=== PATIENT | female | born 1980 | race Caucasian/White ===

== ENCOUNTER 2020-02-21 14:18 | Outpatient (CLI) | payer OTHER, SELFPAY ==
--- NOTE | ~2020-02-21 | MM_ITS ---
EXAMINATION: MM screening [facility] HISTORY: Screening mammogram TECHNIQUE: Craniocaudal and mediolateral oblique 3-D tomosynthesis images were obtained and synthetic 2-D images were generated. CAD analysis was submitted and interpreted. COMPARISON: 11/09/2018 BREAST PARENCHYMAL COMPOSITION: The breasts are heterogeneously dense, which may obscure small masses . FINDINGS: There is no evidence of suspicious mass, calcification, or architectural distortion to sugg est malignancy in either breast. There has been no suspicious interval change. IMPRESSION: 1. No mammographic evidence of malignancy. 2. Recommend routine screening mammography in one year. BI-RADS Category 1: Negative Reviewed, dictated and finalized at location A.
== END 2020-02-21 14:19 | disposition home or self-care (01) ==
LOC: ANHIMG 14:22
DX: Z12.31 Encounter for screening mammogram for malignant neoplasm of breast (principal)
CPT/HCPCS: 77063; 77067

== ENCOUNTER 2021-02-22 14:45 | Outpatient (CLI) | payer OTHER, SELFPAY ==
--- NOTE | ~2021-02-22 | MM_ITS ---
EXAMINATION: MM screening [facility] HISTORY: Screening mammogram TECHNIQUE: Craniocaudal and mediolateral oblique 3-D tomosynthesis images were obtained and synthetic 2-D images were generated. CAD analysis was submitted and interpreted. COMPARISON: 02/21/2020, 11/09/2018 BREAST PARENCHYMAL COMPOSITION: The breasts are heterogeneously dense, which may obscure small masses . FINDINGS: There is no evidence of suspicious mass, calcification, or architectural distortion to sugg est malignancy in either breast. There has been no suspicious interval change. IMPRESSION: 1. No mammographic evidence of malignancy. 2. Recommend routine screening mammography in one year. BI-RADS Category 1: Negative Reviewed, dictated and finalized at location A.
== END 2021-02-22 14:46 | disposition home or self-care (01) ==
LOC: ANHIMG 14:56
DX: Z12.31 Encounter for screening mammogram for malignant neoplasm of breast (principal)
CPT/HCPCS: 77063; 77067

== ENCOUNTER 2022-03-23 14:47 | Outpatient (CLI) | payer OTHER, SELFPAY ==
--- NOTE | ~2022-03-23 | MM_ITS ---
EXAMINATION: MM screening [facility] HISTORY: Screening mammogram TECHNIQUE: Craniocaudal and mediolateral oblique 3-D tomosynthesis images were obtained and synthetic 2-D images were generated. CAD analysis was submitted and interpreted. COMPARISON: 02/22/2021, 02/21/2020, 11/09/2018 BREAST PARENCHYMAL COMPOSITION: The breasts are heterogeneously dense, which may obscure small masses . FINDINGS: There is no suspicious mass, calcification, or architectural distortion to suggest malignan cy in either breast. There has been no suspicious interval change. IMPRESSION: 1. No mammographic evidence of malignancy. 2. Recommend routine screening mammography in one year. BI-RADS Category 1: Negative Reviewed, dictated and finalized at location A.
== END 2022-03-23 14:48 | disposition home or self-care (01) ==
DX: Z12.31 Encounter for screening mammogram for malignant neoplasm of breast (principal)
CPT/HCPCS: 77063; 77067

== ENCOUNTER 2023-02-10 11:31 | Emergency (ER) | payer OTHER, SELFPAY ==
[2023-02-10 11:41] VITALS: BP 117/66; PULSE 68; RESP 18; TEMP 36.4; O2SAT 100
--- NOTE | 2023-02-10 11:47 | ED.FEMALEGU ---
HPI - Female Genitourinary General Chief complaint: Urogenital-Female Stated complaint: Female Urogenital Time Seen by Provider: 02/10/23 11:47 Source: patient, RN notes reviewed and old records reviewed Mode of arrival: ambulatory Limitations: no limitations History of Present Illness HPI Narrative: 43-year-old female who presents to [facility] with complaints of 4 day duration urinary tract symptoms which includes burning, urgency,and frequency with some urethra discomfort. Patient reports that she has no suprapubic pain or any back or flank pain. patient reports that she called clinic at [place] and was unable to be seen till next week so was referred to clinic here. Patient reports that she has increased her water intake and burning has decreased some but other symptoms continue. Patient denies any vaginal discharge or any concern for STD exposure. Patient reports that she has not had any known fever. MD elicited complaint: UTI Onset (ago): day(s) (4) Location of symptoms: urethra Severity scale (1-10): 4 Quality of pain: burning Vaginal discharge: none Related Data Home Medications Medication Instructions Recorded Confirmed progesterone micronized 100 mg 100 mg PO HS 02/10/23 02/10/23 capsule semaglutide 1 mg/dose (2 mg/1.5 1 mg subcut WEEKLY 02/10/23 02/10/23 mL) subcutaneous pen injector (Ozempic) Allergies Allergy/AdvReac Type Severity Reaction Status Date / Time No Known Allergies Allergy Unverified 12/25/18 17:01 Review of Systems Review of Systems: CONSTITUTIONAL: Denies fever, chills, or sweats. CARDIOVASCULAR: Denies chest pain, palpitations, or edema. RESPIRATORY: Denies cough or dyspnea. GASTROINTESTINAL: Denies abdominal pain, nausea, vomiting, or diarrhea. GENITOURINARY: Reports dysuria, frequency, urgency. Denies flank pain or visible hematuria. SKIN: Denies rash or itching. MUSCULOSKELETAL: Denies back pain or myalgia. Denies CVA tenderness NEUROLOGIC: Denies headache All systems reviewed & are unremarkable except as noted in HPI and below PMFSH Past Medical History Medical History (Updated 02/11/23 @ 20:39 by Cecy Harrison NP) Obesity (BMI 30-39.9) on Ozempic for weight loss Surgical History Surgical History (Updated 02/11/23 @ 20:32 by Cecy Harrison NP) Previous section Social History Social History (Updated 02/11/23 @ 20:32 by Cecy Harrison NP) Smoking status: Never smoker Alcohol intake: current Alcohol use details: rare social Substance use type: does not use Living arrangements: with family Gender identity (if verbalized by the patient): Female Comments At time of signature, agree with nursing past medical, surgical, social and family history. There is no relevant family history pertinent to the presenting complaint Exam Narrative: GENERAL: Well-appearing, well-nourished, and in no acute distress. HEAD: Normocephalic, atraumatic. NECK: Supple.no lymphadenopathy CHEST: Clear to auscultation. No respiratory distress.SAO2 100% on room air HEART: Regular rate and rhythm. No murmur heard. Normal peripheral pulses. ABDOMEN: Soft, nontender, nondistended, normal active bowel sounds. No CVA tenderness, frequency urgency and dysuria EXTREMITIES: Normal range of motion. No edema. SKIN: Warm, dry, no rash. NEURO: No focal deficits. Alert and oriented x3. Course Course Emergency Course: Patient is aware of diagnosis, understands and agrees to treatment plan.? Anticipatory guidance given.? Patient agrees to follow-up as directed and is aware of reasons to seek care at the emergency department. Portions of this record may have been created with voice recognition software Level of Care: Express Care Visit Vital Signs Vital signs: Vital Signs Temperature 36.4 C 02/10/23 11:41 Pulse Rate 68 02/10/23 11:41 Respiratory Rate 18 02/10/23 11:41 Blood Pressure 117/66 02/10/23 11:41 Pulse Oximetry
== END 2023-02-10 12:11 | disposition home or self-care (01) ==
PROVIDERS: Emergency Provider Registered Nurse
DX: N39.0 Urinary tract infection, site not specified (principal)
CPT/HCPCS: 81003; 87086; 87088; 99213; G0463

== ENCOUNTER 2023-05-10 13:18 | Outpatient (CLI) | payer OTHER, SELFPAY ==
--- NOTE | ~2023-05-10 | MM_ITS ---
EXAMINATION: MM screening [facility] HISTORY: Screening mammogram TECHNIQUE: Craniocaudal and mediolateral oblique 3-D tomosynthesis images were obtained and synthetic 2-D images were generated. Bilateral rotated lateral CC views. CAD analysis was submitted and inter preted. COMPARISON: 03/23/2022, 02/22/2021, 02/21/2020 bilateral screening mammogram examinations BREAST PARENCHYMAL COMPOSITION: The breasts are heterogeneously dense, which may obscure small masses . FINDINGS: There is no evidence of suspicious mass, calcification, or architectural distortion to sugg est malignancy in either breast. There has been no suspicious interval change. IMPRESSION: 1. No mammographic evidence of malignancy. 2. Recommend routine screening mammography in one year. BI-RADS Category 1: Negative Reviewed, dictated and finalized at location A.
== END 2023-05-10 13:19 | disposition home or self-care (01) ==
DX: Z12.31 Encounter for screening mammogram for malignant neoplasm of breast (principal)
CPT/HCPCS: 77063; 77067

== ENCOUNTER 2025-01-17 16:16 | Emergency (ER) | payer OTHER, SELFPAY ==
--- OUTSIDE RECORDS SUMMARY | 2025-01-17 16:18 | XMS_ITS | Continuity of Care Document ---
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 It does not include entries that were removed or entered in error. Problem Status Onset Date Problem Type Date of Resolution Comments Source History of syncope Active 10/13/19 22 Condition -37 [facility] Mixed hyperlipidemia Active 05/08/20 20 Condition -37 [facility] Postural orthostatic tachycardia syndrome Active 09/15/19 16 Condition -37 [facility] Orthostatic hypotension Active 07/08/20 15 Condition -37 [facility] Anxiety Active Condition [facility] Rhinitis Active Condition 37 [facility] Screening for malignant neoplasm of colon done Active Condition [id number] Pityriasis rosea Active Condition DoD HYPOTENSION Inactive Condition DoD visit for: refer patient without exam or treatment Inactive Condition DoD Outpatient Physician Consultation Active Condition DoD visit for: administrative purpose Inactive Condition DoD anxiety Active Condition DoD dizziness Inactive Condition DoD EUSTACHIAN TUBE Active Condition DoD visit for: issue repeat prescription Inactive Condition DoD SINUSITIS Active Condition DoD ankle joint pain Active Condition DoD VARICOSE VEINS Active Condition DoD VASOVAGAL SYNCOPE Active Condition DoD VISUAL DISTURBANCES Active Condition DoD visit for: follow-up exam Active Condition DoD cough Active Condition DoD NORMAL PRE-EMPLOYMENT SCREENING EXAMINATION Active Condition DoD RHINITIS Active Condition DoD UPPER RESPIRATORY INFECTION Inactive Condition DoD visit for: screening exam lipoid disorders Active Condition DoD CONTUSION WITH INTACT SKIN SURFACE Active Condition DoD BACK STRAIN Active Condition DoD lightheadedness Active Condition DoD Body Mass Index Inactive Condition DoD current diet needs improvement Inactive Condition DoD OVERWEIGHT Active Condition DoD visit for: screening exam arthropod-borne disease Inactive Condition DoD visit for: issue repeat prescription for medication Inactive Condition DoD FATIGUE Active Condition Pt with ma ny symptoms of poss thyroid dysfunction, will r/o thyroid and anemia as cause. 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 Condition OCT performed a nd baseline photos taken and reviewed.Monitor DoD REFRACTIVE ERROR - MYOPIA Active Condition Disp Spec Rx -0.50 DS OU, +1.25 Add for Computer [employer] with instructions 5x1min/weekday DoD ALLERGIC RHINITIS Active Condition DoD CONJUNCTIVITIS ACUTE BACTERIAL Active Condition son with conjunctivitis for several days, yesterday evening patient began with itching red right eye, this am eyelashes gummed together with purulent discharge and eye continues with itching and drainage; no allergies to medications, on BCP and not ; will treat with Vigamox drops 3 times a day for 7 days DoD OBSTETRICAL SURGICAL WOUND COMPLICATIONS Active Condition Incision heali ng well. Pt to f/u in 3 wks. DoD POSTOPERATIVE INFECTION ABDOMINAL INCISION Active Condition discussed with Dr Stauffer; may take several months to completely heal; pt to call in 4wks to walk in with Dr Stauffer or Dr Liu for f/u incision check. Pt aware DoD visit for: screening exam for malignant neoplasm cervix Inactive Condition DoD visit for: exam Inactive Condition DoD Inquiry And Counseling: Contraceptive Practices Inactive Condition Will have admin call and notify pt that rx was placed. DoD visit for: postsurgical exam Inactive Condition DoD Supervision Of Normal First Inactive Condition DoD feared medical condition not demonstrated Inactive Condition DoD insomnia Inactive Condition Desires Ambien. DoD BACKACHE Inactive Condition DoD allergies Inactive Condition DoD NONINFECTIVE LEUKORRHEA Active Condition DoD visit for: screening exam malignant neoplasm breast Inactive Condition DoD Pelvic Exam (Internal) Inactive Condition DoD visit for: screening exam venereal disease Inactive Condition DoD NONSPECIFIC ABNORMAL FINDINGS Active Condition DoD Patient Education - Dietary Inactive Condition Nutrtition Briefing DoD Test Positive Inactive Condition DoD UPPER RESPIRATORY INFECTION ACUTE Active Condition DoD Vaccines Prophylactic Need Against Influenza Inactive Condition DoD Medications Combined list of outpatient medications from Department of Defense and Veterans Affairs facilities.Medications provided include 1) outpatient medications from the last 15 months, and 2) patient-reported medications. Medication Details Route Status Patient Instructions Prescription Expires Prescription Number Last Dispense Date Ordering Provider Order Date Order Qty Source AFLURIA QUAD (3YR UP) (influenza virus vaccine quadrivalen t 2021-22 (36 mos up)/PF), 60MCG/ AFLURIA QUAD 2020- (3YR UP) (influen za virus vaccine quadriva lent 2020- (36 mos up)/PF), 60MCG/ Start Date: 05/24/21 Stop Date: 03/19/24 Status: Disconti nued Repeat number: 1 Discont inued 03/19/20242023 No Facilit y Access cholecalcif era 25 mcg (1000 intl units) oral tablet cholecal ciferol 25 mcg (1000 intl units) oral tablet Start Date: 07/30/20 Stop Date: 04/19/24 Status: Disconti nued Repeat number: 1 Discont inued 04/19/20242023 No Facilit y Access Diflucan 150 mg oral tablet See Instruct ions, Take 1 tablet by mouth now and repeat in 3 days for yeast infectio n, # 2 tab(s), 1 total refill(s ), Acute, 04/19/25 12:00:00 AM CDT, Pharmacy : [id number], Fungal, other Ordered 04/19/20252023 2.0 0055C-[address] [place] [address] Flagyl 500 mg oral tablet 1 tab(s), Oral, every 12 hr, X 7 days, # 14 tab(s), 0 total refill(s ), Acute, 04/29/24 6:08:00 PM CDT, Pharmacy : [facility] , Gynecolo gic, other Oral (given by mouth) Complet ed 04/29/2024 4 2023 14.0 0055C-[address] [place] [address] Arturo FLUZONE QUAD 0340-8373 (influenza virus vaccine quadrival 2894-0857(6 mos and up)/PF), 60MCG/.5ML, FLUZONE QUAD 2019- 1 (influen za virus vaccine quadriva l 2019- 1(6 mos and up)/PF), 60MCG/.5 ML, Start Date: 05/21/20 Stop Date: 03/19/24 Status: Disconti nued Repeat number: 1 Discont inued 03/19/20242023 No Facilit y Access folic acid 1 mg oral tablet folic acid 1 mg oral tablet Start Date: 07/30/20 Stop Date: 04/19/24 Status: Alexys miller Repeat number: 1 Discont inued 04/19/20242023 No Facilit y Access LORazepam 0.5 mg oral tablet 1 tab(s), Oral, As Directed , PRN anxiety, # 10 tab(s), 0 total refill(s ), Maintena wae, Pharmacy : [facility] Oral (given by mouth) Ordered 4 2023 10.0 6130C-A f-C-[facility] LORazepam 0.5 mg oral tablet 10 tab(s), 0 total refill(s ), Soft Stop Discont inued 03/19/20242023 6130C-A f-C-375 [facility] LORazepam 0.5 mg oral tablet 1 tab(s), Oral, As Directed , # 2 tab(s), 0 total refill(s ), Maintena wae, Pharmacy : [facility] Oral (given by mouth) Discont inued 04/22/2024 4 2023 2.0 6130C-A f-C-375 Th [facility] Arturo multivitami n adult, oral tablet Oral, Daily, 0 total refill(s ), Maintena nce Oral (given by mouth) Ordered 2023 0055C-3 [facility] Arturo Paxlovid 300 mg-100 mg Dose Pack See instruct ions, Take 300 mg nirmatre lvir (two 150 mg tablets) and 100 mg ritonavi r (one 100 mg tablet), taking all three tablets together , orally twice daily for 5 days, # 30 tab(s), 0 total refill(s ), Maintena nce, Pharmacy : [facility] Discont inued 04/19/2024 4 2023 30.0 6130C[facility]A [facility]uro progesteron e 100 mg capsule See Instruct ions, Oral, # 90 EA, 0 total refill(s ), Hard Stop Oral (given by mouth) Complet ed 02/20/2024 3 2023 90.0 Ambulat ory Pharmac y progesteron e 100 mg oral capsule 90 cap(s), 0 total refill(s ), Soft Stop Discont inued 04/19/20242023 6130C-A f-C-375 [facility] semaglutide (Ozempic) 2 mg/3 mL (0.25 mg or 0.5 mg dose) inj-pen mg, SubCutan eous, every week, 0 total refill(s ), Maintena nce SubCut aneous (under the skin) Ordered 2023 0055C-3 [facility] semaglutide (Wegovy) 1 mg/0.5 mL (1 mg dose) inj-pen See Instruct ions, Inject 1mg subcutan eously once weekly for four weeks for weight manageme nt, # 2 mL, 0 total refill(s ), Maintena nce, pen needles not needed, integrat ed into device Discont inued 04/19/20242023 2.0 6130C-A f-C-375 [facility] Arturo sulfamethox azole-trime thoprim 800 mg-160 mg oral tablet 14 EA, TAKE 1 TABLET BY MOUTH EVERY 12 HOURS, 0 total refill(s ), Soft Stop Discont inued 03/19/20242023 6130C-A f-C-375 [facility] Art[facility] Allergies, Adverse Reactions, Alerts Combined list of allergies from Department of Defense and Veterans Affairs facilities. It does not include entries that were removed or entered in error. Substance Category Reaction Severity Reaction type Status Date Reported Comments Source No Known Allergies Drug allergy (disorder) active 02/12/2008 [facility] Arturo BAKER ([facility]) Immunizations Combined list of available immunizations from the Department of Defense and Veterans Affairs facilities. Immunization Series Date Given Administered By Site Reaction Lot Number CVX Code Drug [employer]ing Machine Tender Status Comments Source COVID-19, mRNA, LNP-S, PF, 30 mcg/0.3 mL dose 2020 SHIRIN, [employer] (PFR) Not Given COVID-19, mRNA, LNP-S, PF, 30 mcg/0.3 mL dose DoD influenza, injectable, quadrivalent, preservative free 2020 KARLI, () Not Given influenza , injectabl e, quadrival ent, preservat micah free DoD influenza, injectable, quadrivalent- pf 2019 150 complet ed influenza , injectabl e, quadrival ent-pf 05/13/20 Given Ambulat ory Pharmac y influenza, injectable, quadrivalent, preservative free 2019 ALUL, () Not Given influenza , injectabl e, quadrival ent, preservat micah free DoD influenza, injectable, quadrivalent- pf 2018 150 complet ed influenza , injectabl e, quadrival ent-pf 06/13/19 Given Ambulat ory Pharmac y influenza, injectable, quadrivalent, preservative free 2018 ALUL, () Not Given influenza , injectabl e, quadrival ent, preservat micah free DoD tetanus, diphtheria, acellular pertu is 2016 zMartinez t Arm [id number] 115 [facility] complet ed tetanus, diphtheri a, acellular pertussis 04/19/17 Given Ambulat ory Pharmac y tetanus toxoid, reduced diphtheria toxoid, and acellular pertu is vaccine, adsorbed 1 2016 Unknown, Provider [id number] 115 [facility] ([facility]) complet ed tetanus toxoid, reduced diphtheri a toxoid, and acellular pertussis vaccine, adsorbed DoD influenza, seasonal, injectable 2010 [id number] C[employer] Behring complet ed influenza , seasonal, injectabl e 05/11/11 Given Ambulat ory Pharmac y tuberculin purified protein derivative 2009 zzL t Arm [id number] 96 sanofi pasteur complet ed Patient Tolerance : Negative Ambulat ory Pharmac y tuberculin skin test; purified protein derivative solution, intradermal 1 2009 Unknown, Provider [id number] 96 Sanofi Pasteur ([facility]) complet ed tuberculi n skin test; purified protein derivativ e solution, intraderm al DoD Novel Influenza-H1N 1-09,live virus,nasal 2008 [id number] 125 [employer] comple t ed Novel Influenza -X0S0-29, live virus,kim al 06/19/09 Given Ambulat ory Pharmac y Novel Influenza-H1N 1-09, live virus for nasal administratio n 1 2008 Unknown, Provider [id number] 125 [employer], [employer] (MED) complet ed Novel Influenza -B5I0-79, live virus for nasal administr ation [facility] influenza virus vaccine, live 2008 [id number] 111 [employer] comple t ed influenza virus vaccine, live 04/24/09 Given Ambulat ory Pharmac y influenza virus vaccine, live, attenuated, for intranasal use 1 2008 Unknown, Provider [id number] 111 [employer] Inc. (MED) complet ed influenza virus vaccine, live, attenuate d, for intranasa l use DoD influenza virus vaccine,split 2007 zzLef t Arm [id number] 15 [employer] complet ed influenza virus vaccine,s plit 05/02/08 Given Ambulat ory Pharmac y influenza virus vaccine, split virus (incl. purified surface antigen)-reti red CODE 1 2007 Unknown, Provider [id number] 15 [employer] ([facility]) complet ed influenza virus vaccine, split virus (incl. purified surface antigen)- retired CODE DoD influenza virus vaccine,split 2006 zzLef t Arm [id number] 15 [employer] complet ed influenza virus vaccine,s plit 07/13/07 Given Ambulat ory Pharmac y influenza virus vaccine, split virus (incl. purified surface antigen)-reti red CODE 1 2006 Unknown, Provider [id number] 15 [facility] (B) complet ed influenza virus vaccine, split virus (incl. purified surface antigen)- retired CODE [facility] tuberculin purified protein derivative 2006 zzLef t Arm [id number] 96 sanofi pasteur complet ed Patient Tolerance : Negative Ambulat ory Pharmac y tuberculin skin test; purified protein derivative solution, intradermal 1 2006 Unknown, Provider [id number] 96 Sanofi Pasteur ([facility]) complet ed tuberculi n skin test; purified protein derivativ e solution, intraderm al [facility] tetanus, diphtheria, acellular pertu is 2006 zzLef t Arm [id number] 115 sanofi pasteur complet ed tetanus, diphtheri a, acellular pertussis 02/22/07 Given Ambulat ory Pharmac y tetanus toxoid, reduced diphtheria toxoid, and acellular pertu is vaccine, adsorbed 1 2006 Unknown, Provider [id number] 115 Sanofi Pasteur ([facility]) complet ed tetanus toxoid, reduced diphtheri a toxoid, and acellular pertussis vaccine, adsorbed DoD influenza virus vaccine,split 2004 zzLef t Arm [id number] 15 sanofi pasteur complet ed influenza virus vaccine,s plit 07/04/05 Given Ambulat ory Pharmac y influenza virus vaccine, split virus (incl. purified surface antigen)-reti red CODE 1 2004 Unknown, Provider [id number] 15 Sanofi Pasteur ([facility]) complet ed influenza virus vaccine, split virus (incl. purified surface antigen)- retired CODE [facility] Results Combined list of recent chemistry, hematology and other laboratory results from Department of Defense and Veterans Affairs, ranging from 15 months to all on record, depending upon the facility. 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 [address] Cytology Gynecolo gic Report Patient: Amparo Barboza i Specimen #: [id number] [facility] ID:: [id number] Encounte r #: [id number] Taken: 04/19/2024 14:12 /Age: 4 8 (Age: 44) Received : 4 14:47 Physicia n(s:): ANURADHA AMIN Reported : 4 Specimen (s) Received Taken Rec Thin Prep - Cervical w/o reflex HPV 04/19/2024 14:12 4 14:47 Final Diagnosi s Thin Prep - Cervical w/o reflex HPV: Satisfac tory for evaluati on; endocerv ical componen t present. Negative for intraepi thelial lesion or malignan cy. Fungal organism s morpholo gically consiste nt with Trang spp. This Pap test was evaluate d with the assistan ce of the Thin Prep Imaging System. Elect ronicall y Signed by TRICIA GALARZA * Clinical Diagnosi s and History hx of HPV cotest in 2015, nml since. Return to routine screenin g in 5 yrs if neg Prior History Signed Out Specimen # Interpre tation 08/10/20 20 [id number] Negative for Intraepi thlial Lesion or Malignan cy 02/10/20 17 [id number] NEGATIVE 10/14/19 16 [id number] NEGATIVE 06/05/20 07 [id number] NEGATIVE 06/07/20 06 [id number] NEGATIVE CPT Codes: A; 91477 The Pap test is a screenin g test for precurso rs of squamous cell carcinom a with an irreduci ble false negative rate of around 5%. It is not designed to detect glandula r lesions. A negative test does not ensure that no disease is present. 04/19 0055C-[address] [place] [address] AP Specimens HPV Typing High Risk Negative 9 (04/19/24 2:12 PM) Negative 04/19 N Interpretiv e Data: HPV Typing High Risk Negative: NEGATIVE for concurrentl y detecting the rest of the 12 high risk types HPV DNA (31,33,35,3 9,45,51,52, 56,58,59,66 and 68) without differentia tion. HPV Typing High Risk Positive: POSITIVE for concurrentl y detecting the rest of the 12 high risk types HPV DNA (31,33,35,3 9,45,51,52, 56,58,59,66 and 68) without differentia tion. The gerald HPV Test is a qualitative in vitro test for the detection Human Papillomavi lalit in clinician-c ollected cervical and vaginal specimens. It detects the following high-risk HPV types 16, 18, 31, 33, 35, 39, 45, 51, 52, 56, 58, 66, and 68. Note: The modificatio n to specimen source of vaginal was developed and its performance characteris tics determined by [facility], [facility]. Vaginal source has not been cleared or approved by the U. S. Food and Drug Administrat [employer]. This modified vaginal specimen HPV test is for clinical purposes. This laboratory is certified under the Clinical Laboratory Improvement Amendments of 1988 (CLIA-88) as qualified to perform high complexity clinical laboratory testing. Clinician collected PreservCyt ThinPrep vaginal specimen are an approved additional specimen source, based on an internal laboratory validation. Limitations : A negative result does NOT preclude the presence of HPV infection because results depend on adequate specimen collection, absence of inhibitors and sufficient DNA to be detected. Correlation with cytologic findings is recommended as applicable. Questions about process or methodology contact Molecular Department at or [phone]. 0109A-A [facility] AP Specimens HPV Genotype 18 Negative 8 (04/19/24 2:12 PM) Negative 04/19 N Interpretiv e Data: HPV GENOTYPE 18 Negative: NEGATIVE for HPV genotype 18 DNA. HPV GENOTYPE 18 Positive: POSITIVE for HPV genotype 18 DNA. The gerald HPV Test is a qualitative in vitro test for the detection Human Papillomavi lalit in clinician-c ollected cervical and vaginal specimens. It detects the following high-risk HPV types 16, 18, 31, 33, 35, 39, 45, 51, 52, 56, 58, 66, and 68. Note: The modificatio n to specimen source of vaginal was developed and its performance characteris tics determined by [facility], [facility]. Vaginal source has not been cleared or approved by the U. S. Food and Drug Administrat [employer]. This modified vaginal specimen HPV test is for clinical purposes. This laboratory is certified under the Clinical Laboratory Improvement Amendments of 1988 (CLIA-88) as qualified to perform high complexity clinical laboratory testing. Clinician collected PreservCyt ThinPrep vaginal specimen are an approved additional specimen source, based on an internal laboratory validation. Limitations : A negative result does NOT preclude the presence of HPV infection because results depend on adequate specimen collection, absence of inhibitors and sufficient DNA to be detected. Correlation with cytologic findings is recommended as applicable. Questions about process or methodology contact Molecular Department at [phone] or [phone]. 0109A-A [facility]- [facility] AP Specimens HPV Genotype 16 Negative 10 (04/19/24 2:12 PM) Negative 04/19 N Interpretiv e Data: HPV GENOTYPE 16 Negative: NEGATIVE for HPV DNA genotype 16 DNA. HPV GENOTYPE 16 Positive: POSITIVE for HPV genotype 16 DNA. The gerald HPV Test is a qualitative in vitro test for the detection Human Papillomavi lalit in clinician-c ollected cervical and vaginal specimens. It detects the following high-risk HPV types 16, 18, 31, 33, 35, 39, 45, 51, 52, 56, 58, 66, and 68. Note: The modificatio n to specimen source of vaginal was developed and its performance characteris tics determined by [facility], [facility]. Vaginal source has not been cleared or approved by the U. S. Food and Drug Administrat [facility]. This modified vaginal specimen HPV test is for clinical purposes. This laboratory is certified under the Clinical Laboratory Improvement Amendments of 1988 (CLIA-88) as qualified to perform high complexity clinical laboratory testing. Clinician collected PreservCyt ThinPrep vaginal specimen are an approved additional specimen source, based on an internal laboratory validation. Limitations : A negative result does NOT preclude the presence of HPV infection because results depend on adequate specimen collection, absence of inhibitors and sufficient DNA to be detected. Correlation with cytologic findings is recommended as applicable. Questions about process or methodology contact Molecular Department at or [phone]. 0109A-A [facility]- H Chemistry Ur Microalbumi n <5 mg/L 04/19 N Interpretiv e Data: To minimize intra-indiv idual variation, analysis of three random urine samples collected over the course of a week has also been recommended . Result Comment: Below detectable range of analyzer.// KMB 0055A-3 [facility] Chemistry BUN 7 mg/dL 7 - 20 04/19 N 0055A-3 [facility] Chemistry BUN/Creat Ratio 12 mg/dL 12 - 04/19 N 0055A-[address] [place] [address] Chemistry Calcium 9.8 mg/dL 8.4 - 10.2 04/[address] [place] [address] Chemistry Chloride 103 mmol/L 98 - 107 04/[address] [place] [address] Chemistry CO2 26 mmol/L 22 - 29 04/[address] [place] [address] Chemistry Creatinine Level 0.60 mg/dL 0.57 - 1.11 04/[address] [place] [address] Chemistry Glucose Lvl 100 mg/dL 74 - 99 04/[address] [place] [address] Chemistry Potassium Lvl 3.6 mmol/L 3.5 - 5.1 04/[address] [place] [address] Chemistry Sodium 138 mmol/L 136 - 145 04/[address] [place] [address] Chemistry AGAP 9.00 0.00 - 15.00 04/[address] [place] [address] Chemistry eAvg Glucose 82 mg/dL 04/[address] [place] [address] Chemistry Hemoglobin A1c 4.5 % 4.0 - 5.6 04/19 N Interpretiv e Data: Normal: 4.0 - 5.6% Increased Risk: 5.7 - 6.4% Diabetic Range: 6.5% For patients without diabetes, the normal range for the hemoglobin A1c test is between 4% and 5.6%. Hemoglobin A1c levels between 5.7% and 6.4% indicate increased risk of diabetes, and levels of 6.5% or higher indicate diabetes. Because studies have repeatedly shown that out-of-cont rol diabetes results in complicatio ns from the disease, the goal for people with diabetes is a hemoglobin A1c less than 7%. The higher the hemoglobin A1c, the higher the risks of developing complicatio ns related to diabetes. If confirmatio n is needed, consider recalling the patient and ordering Hemoglobin Electrophor esis. [address] [place] [address] Chemistry Cholesterol Total 212 mg/dL 04/19 H Interpretiv e Data: According to the [place] [employer] : AGES 0-19: Desirable: < 170 mg/dL Borderline High: 170-199 mg/dL High Blood Cholesterol : >/= 200 mg/dL ADULTS: Desirable < 200 mg/dL Borderline High: 200-239 mg/dL High Blood Cholesterol : >/= 240 mg/dL [address] [place], [place] [address] Chemistry LDL 125 mg/dL 100 - 130 04/19 N Interpretiv e Data: AGES 0-19: Desirable: < 110 mg/dL Borderline High: 110-129 mg/dL High: >/= 130 mg/dL ADULTS: Desirable: <100 mg/dL Near/above optimal: 100-130 mg/dL Borderline High: 131-159 mg/dL High: 160-189 mg/dL Very High: 190 mg/dL [address] [place], [place] [address] Chol/HDL 3 mg/dL 04/[address] [place] [address] [facility] Chemistry LDL/HDL 2 04/[address] [place] [address] [facility] Chemistry Triglycerid es 86 mg/dL 7 - 149 04/19 N Interpretiv e Data: AGES 0-9: Desirable: < 75 mg/dL Borderline High: 75-99 mg/dL High: >/= 100 mg/dL AGES 10-19: Desirable: < 90 mg/dL Borderline High: 90-129 mg/dL High: >/= 130 mg/dL ADULTS: Desirable: < 150 mg/dL Borderline High: 150-199 mg/dL High: >/= 240 mg/dL Very High: >/= 500 mg/dL [address] [place] [address] [facility] Chemistry HDL Cholesterol 72 mg/dL 40 - 59 04/19 H Interpretiv e Data: HDL (HIGH DENSITY LIPOPROTEIN ): ADULTS: Low: < 40 mg/dL High: >/= 60 mg/dL AGES 0 -19: Low: < 40 mg/dL Borderline Low: 40 - 45 mg/dL Acceptable: > 45 mg/dL [address] [place], [place] [address] eGFR CKD EPI 112 mL/min/1 .73_m2 04/19 Interpretiv e Data: Estimated Glomerular Filtration Rate (eGFR) calculated using the 2020 Chronic Kidney Disease-Epi demiology (CKD-EPI) Collaborati on creatinine equation; units of measure are mL/min/1.73 m2. Results are only valid for adults (>=18 years) whose serum creatinine is in steady state. eGFR calculation s are not valid for patients with acute kidney injury and for patients on dialysis. Creatinine- based estimates of kidney function may also be inaccurate in patients with reduced creatinine generation due to decreased muscle mass (e.g., malnutritio n, severe hypoalbumin emia, sarcopenia, chronic neuromuscul ar disease, amputations , severe heart failure or liver disease) and in patients with increased creatinine generation due to increased muscle mass (e.g., muscle builders, anabolic steroids) or increased dietary intake. CKD is diagnosed based on abnormaliti es of kidney structure or function, present for >3 months, with implication s for health and disease. CKD is classified and staged based on cause, eGFR and albuminuria (quantified as urine albumin to creatinine ratio). An eGFR >60 mL/min/1.73 m2 in the absence of increased urine albumin excretion or structural abnormaliti es does not CKD. eGFR provides only an estimate of measured GFR within +/- 30% for most patients. As mentioned, nutritional status and muscle mass, among many factors, may lead to inaccuracy in the estimate. Consider ordering the creatinine- cystatin C panel if better accuracy is needed for clinical decision-jeannie levine. eGFR (mL/min/1.7 3 m2) CKD stage Interpretat ion Normal 60-89 Mild decrease 45-59 Mild to moderate decrease 30-44 Moderate to severe decrease 15-29 Severe decrease <15 Kidney failure 0055A-3 [facility] Vital Signs Combined list of inpatient and outpatient Vital Signs from Department of Defense and Veterans Affairs, ranging from 12 months to all on record, depending upon the facility. Vital Sign Value Date Comments Source Systolic Blood Pressure 113 mm[Hg] 04/19/2024 18:21:[address] [place] [address] [facility] Diastolic Blood Pressure 75 mm[Hg] 04/19/2024 18:21:[address] [place], [place] [address]Arturo Peripheral Pulse Rate 76 bpm 04/19/2024 18:21:[address] [place] [address] [facility] Mean Arterial Pressure, Calc 88 mm[Hg] 04/19/2024 18:21:[address] [place] [address] [facility] Respiratory Rate 17 br/min 04/19/2024 18:21:[address] [place] [address] [facility] Temperature Oral 36.5 Dalila 04/19/2024 18:21:00 0055C-[facility] BP Site Left arm 03/20/2023 20:40:00 6130C -Af-C-[facility] Systolic Blood Pressure 116 mm[Hg] 03/20/2023 20:40:00 2939G-Dq-X-[facility] Diastolic Blood Pressure 71 mm[Hg] 03/20/2023 20:40:00 7818B-Li-U-[facility] Respiratory Rate 18 br/min 03/20/2023 20:40:00 1979T-Ej-H[facility] Peripheral Pulse Rate 87 bpm 03/20/2023 20:40:00 2256D-Gm-B-[facility] Mean Arterial Pressure, Calc 86 mm[Hg] 03/20/2023 20:40:00 8484Q-Js-P-3 [facility] Blood Pressure Manual Automatic 03/20/2023 20:40:00 5906A-Lh-U-[facility] Mean Arterial Pressure, Calc 88 mm[Hg] 04/22/2024 19:38:00 4720X-Dd-K-3 [facility] Respiratory Rate 18 br/min 04/22/2024 19:38:00 8375S-Zm-A-[facility] Peripheral Pulse Rate 72 bpm 04/22/2024 19:38:00 1817Q-Mv-D-[facility] Systolic Blood Pressure 111 mm[Hg] 04/22/2024 19:38:00 8622S-Ko-M-[facility] Diastolic Blood Pressure 76 mm[Hg] 04/22/2024 19:38:00 8316N-Uh-F-[facility] Encounters Combined list of: 1) Encounters from Department of Veterans Affairs facilities going backup to the last 18 months, not all VA inpatient encounters are included; 2) Encounters from the Department of Defense facilities going backup to 280 months. Location Location Details Encounter Type Encounter Number Reason For Visit Attending Provider ADM Date DC Date Status Disposition Source [address] [place] [address] Arturo BAKER ([facility])([facility] Practice Non-GME FHI1) OUTPATIENT [id number] flu shot CECILE ADKINS 07/04 Released w/o Limitations [employer] ([facility])(F amily Practic e Non-GME FHI1) [employer] ([facility])(Fam lawson Practice Non-GME FHI2) OUTPATIENT [id number] COUGH,C ONGESTI ON,R/N TERIKAYLIN CABRERA E 08/16 Released w/o Limitations [employer] ([facility])(F amily Practic e Non-GME FHI2) [employer] ([facility])(Ob/ Mail Clerks Supervisor) TELE CONSULT [id number] R-side ache with crampy pain ROSS LIU 08/18 [employer] ([facility])(O b/Mail Clerks Supervisor) [employer] ([facility])(Ob/ Mail Clerks Supervisor) OUTPATIENT [id number] OB orienta tion lmp [id number] MELISSA SAEED 08/22 Released w/o Limitations [employer] ([facility])(O b/Mail Clerks Supervisor) [employer] ([facility])([facility] Medicine) OUTPATIENT [id number] ANNE MYERS 08/23 Released w/o Limitations [employer] ([facility])(N utritio nal Medicin e) [employer] ([facility])(Ob/ Mail Clerks Supervisor) TELE CONSULT [id number] OB PT ROSS LIU 08/24 [facility] [employer] ([facility])(O b/Mail Clerks Supervisor) [employer] ([facility])(Ob/ Mail Clerks Supervisor) TELE CONSULT [id number] u/a ROSALEE DANIELS 09/23 [employer] ([facility])(O b/Mail Clerks Supervisor) [employer] ([facility])(Ob/ Mail Clerks Supervisor) OUTPATIENT [id number] OBO EDC [id number] ROSALEE DANIELS 10/04 Released w/o Limitations [employer] ([facility])(O b/Mail Clerks Supervisor) [facility] [employer] ([facility])(Ob/ Mail Clerks Supervisor) OUTPATIENT [id number] EDC [id number] ROSALEE DANIELS 10/26 Released w/o Limitations [employer] ([facility])(O b/Mail Clerks Supervisor) [employer] ([facility])(Ob/ Mail Clerks Supervisor) TELE CONSULT [id number] nurse call - allergy /cold nydia VERONICA TAMRA Vivek 11/03 [facility] [employer] ([facility])(O b/Mail Clerks Supervisor) [employer] ([facility])(Ob/ Mail Clerks Supervisor) TELE CONSULT [id number] Ultraso und results . ROSALEE DANIELS 12/01 [facility] [employer] ([facility])(O b/Mail Clerks Supervisor) [facility] [employer] ([facility])(Ob/ Mail Clerks Supervisor) TELE CONSULT [id number] nurse call - rib pain ROSS LIU 12/15 [facility] [employer] ([facility])(O b/Mail Clerks Supervisor) [facility] [employer] ([facility])(Ob/ Mail Clerks Supervisor) OUTPATIENT [id number] F/U Ultraso und ROSS LIU 12/15 Released w/o Limitations [employer] ([facility])(O b/Mail Clerks Supervisor) [facility] [employer] ([facility])(Ob/ Mail Clerks Supervisor) OUTPATIENT [id number] ob pt edc Mar 19 ROSALEE DANIELS 12/27 Released w/o Limitations [employer] ([facility])(O b/Mail Clerks Supervisor) [facility] [employer] ([facility])(Ob/ Mail Clerks Supervisor) TELE CONSULT [id number] nurse call - exposur e to fifth' s CALIXTO Albert 01/23 [facility] [employer] ([facility])(O b/Mail Clerks Supervisor) [facility] [employer] ([facility])(Ob/ Mail Clerks Supervisor) OUTPATIENT [id number] EDC [id number] ROSALEE DANIELS 01/31 Released w/o Limitations [employer] ([facility])(O b/Mail Clerks Supervisor) [facility] [employer] ([facility])(Ob/ Mail Clerks Supervisor) OUTPATIENT [id number] EDC ROSALEE DANIELS 02/21 Released w/o Limitations [facility] [employer] ([facility])(O b/Mail Clerks Supervisor) [facility] [employer] ([facility])(Ob/ Mail Clerks Supervisor) OUTPATIENT [id number] ob pt edc Mar ROSALEE DANIELS 03/15 Released w/o Limitations [employer] ([facility])(O b/Mail Clerks Supervisor) [employer] ([facility])(Ob/ Mail Clerks Supervisor) OUTPATIENT [id number] ob pt edc Mar ROSS LIU 03/23 Released w/o Limitations [employer] ([facility])(O b/Mail Clerks Supervisor) [employer] ([facility])(Ob/ Mail Clerks Supervisor) OUTPATIENT [id number] ob pt edc Mar TAMRA MARTIN 03/30 Released w/o Limitations [employer] ([facility])(O b/Mail Clerks Supervisor) [employer] ([facility])(Ob/ Mail Clerks Supervisor) OUTPATIENT [id number] EDC [id number] CALITXO STAUFFER 04/06 Released w/o Limitations [employer] ([facility])(O b/Mail Clerks Supervisor) [employer] ([facility])(Ob/ Mail Clerks Supervisor) TELE CONSULT [id number] TAMRA Goldstein 04/11 [employer] ([facility])(O b/Mail Clerks Supervisor) [employer] ([facility])(Ob/ Mail Clerks Supervisor) OUTPATIENT [id number] ob pt edc Mar 19 ROSS LIU 04/13 Released w/o Limitations [employer] ([facility])(O b/Mail Clerks Supervisor) [employer] ([facility])(Mail Clerks Supervisor ecology) OUTPATIENT [id number] wound check/e ducatio n CALIXTO STAUFFER 04/24 Released w/o Limitations [employer] ([facility])(G ynecolo gy) [employer] ([facility])(Mail Clerks Supervisor ecology) OUTPATIENT [id number] Wound Check CALIXTO STAUFFER 04/27 Released w/o Limitations [employer] ([facility])(G ynecolo gy) [employer] ([facility])(Ob/ Mail Clerks Supervisor) OUTPATIENT [id number] wound care (Per Av ) ROSS LIU 05/04 Released w/o Limitations [employer] ([facility])(O b/Mail Clerks Supervisor) [employer] ([facility])(Mail Clerks Supervisor ecology) OUTPATIENT [id number] wound check CALIXTO STAUFFER 05/11 Released w/o Limitations [employer] ([facility])(G ynecolo gy) [employer] ([facility])(Mail Clerks Supervisor ecology) TELE CONSULT [id number] Reorder BC CALIXTO STAUFFER 05/[address] [place] [address] [employer] ([facility])(G ynecolo gy) [facility] [employer] ([facility])(Mail Clerks Supervisor ecology) OUTPATIENT [id number] Post del: 2 Apr DIVINA GUPTA 05/31 Released w/o Limitations [facility] [employer] ([facility])(G ynecolo gy) [facility] [employer] ([facility])(Mail Clerks Supervisor ecology) OUTPATIENT [id number] Wound Check CALIXTO STAUFFER 06/26 Released w/o Limitations [employer] [facility] [employer] ([facility])(G ynecolo gy) [facility] [employer] ([facility])(Mail Clerks Supervisor ecology) OUTPATIENT [id number] wound check (Per Av ) ROSS LIU 07/05 Released w/o Limitations [address] [place] [address] [employer] ([facility])(G ynecolo gy) [address] [place] [address] [employer] [facility] Non-GME FHI1) TELE CONSULT [id number] cold symptom s NELSON MARTINEZ 09/[address] [place] [address] [employer] [facility]F amily Practic e Non-GME FHI1) [address] [place] [address] [employer] [facility] lawson Practice Non-GME FHI1) TELE CONSULT [id number] [facility] NENITA Frost 01/[address] [place] [address] [employer] [facility]F amily Practic e Non-GME FHI1) [address] [place] [address] [employer] [facility] Non-GME FHI2) OUTPATIENT [id number] C/O conjunc KARSON Johnston 01/03 Released w/o Limitations [address] [place] [address] [employer] ([facility])(F amily Practic e Non-GME FHI2) [address] [place] [address]([facility]) OUTPATIENT [id number] allergKASEY Castelan 02/26 Released w/o Limitations [employer](8 7 Pharmac ist Clinic) [facility](87 Optometry Clinic) OUTPATIENT [id number] eye exam DON DOUGLAS 03/08 Released w/o Limitations [facility](8 7 Optomet ry Clinic) [facility](87 Family Prac Team 1) TELE CONSULT [id number] New Script CABRALSILV ERO, KITA 04/02 [facility](8 7 Family Prac Team 1) [facility](87 Contract Mail Clerks Supervisor) OUTPATIENT [id number] Annual Papsmea JO Newman 05/31 Released w/o Limitations [address] [place] [address](8 7 Contrac t Mail Clerks Supervisor) [facility](87 Family Prac Team 2) TELE CONSULT [id number] PInk eye/Req uesting meds CABRALSILV ERO, KITA 06/05 [facility](8 7 Family Prac Team 2) [facility](87 Family Prac Team 2) OUTPATIENT [id number] ext uri pink eye SHANIA DC 06/06 Released w/o Limitations [facility](8 7 Family Prac Team 2) [facility](87 Family Prac Team 2) OUTPATIENT [id number] DON NEWTON Released w/o Limitations [facility](8 7 Family Prac Team 2) [facility](87 Family Prac Team 2) TELE CONSULT [id number] DON Moctezuma 01/29 [facility](8 7 Family Prac Team 2) [facility](87 Family Prac Team 2) OUTPATIENT [id number] allergi ZACHARIAH Andres 02/10 Released w/o Limitations [facility](8 7 Family Prac Team 2) [facility](87 Family Prac Team 2) TELE CONSULT [id number] Med refill KASEY COX 04/30 [facility](8 7 Family Prac Team 2) [facility](87 Family Prac Team 1) OUTPATIENT [id number] LEVON Wooten 05/20 Released w/o Limitations [facility](8 7 Family Prac Team 1) [facility](87 Optometry Clinic) OUTPATIENT [id number] ree DON DOUGLAS 07/23 Released w/o Limitations [employer](8 7 Optomet ry Clinic) [employer](87 Family Prac Team 1) OUTPATIENT [id number] tick bite LEVON CHAN Jonah 11/10 Released w/o Limitations [employer](8 7 Family Prac Team 1) [employer](87 Family Prac Team 1) TELE CONSULT [id number] Pos Lyme titer TAMRA ROMERO 11/19 [employer](8 7 Family Prac Team 1) [facility](87 Nutrition Clinic) OUTPATIENT [id number] Healthy Eating EL SHELTON 03/11 Released w/o Limitations [employer](8 7 Nutriti on Clinic) [facility](87 Flight Medicine) OUTPATIENT [id number] possibl e med reactio n, syncope yesterd LINDSEY Lo 06/05 Released w/o Limitations [employer](8 7 Flight Medicin e) [facility](87 Family Prac Team 1) OUTPATIENT [id number] back pain CANDIE LEHMAN 06/22 Released w/o Limitations [facility](8 7 Family Prac Team 1) [facility](87 Family Prac Team 1) TELE CONSULT [id number] RX RF: Norinyl (Ortho- Novum EQ) SHANIA DC 07/13 [facility](8 7 Family Prac Team 1) [facility](87 [facility] 4) OUTPATIENT [id number] Cough x 5 days/mu cinex not working DON NEWTON 11/25 Released w/o Limitations [facility](8 7 Family Health Clinic 4) [facility]( Occup Health) OUTPATIENT [id number] [facility] JORDEN Omalley 11/25 Released w/o Limitations [employer](F D Occup Health) [facility]( Occup Health) OUTPATIENT [id number] END [facility] RASHEL COPE 11/27 Released w/o Limitations [facility](F D Occup Health) [facility](87 [facility] 4) OUTPATIENT [id number] Cough f/u worseni VIJAY Muñoz 12/03 Released w/o Limitations [facility](8 7 Family Health [facility] 4) [employer](FD Case Managemen t [facility]) OUTPATIENT [id number] SHAILA MARCANO 12/04 Released w/o Limitations [employer](F D Case Managem ent [facility]) [employer]([facility]) OUTPATIENT [id number] RECORD REVIEW JOE ADKINS 12/16 Released w/o Limitations [employer](O ccupati [facility]) [employer] [facility] [employer]([address] [place] [address] 4) OUTPATIENT [id number] ER/FU VIJAY MCKINNEY 03/18 Released w/o Limitations [employer](8 7 [facility] 4) [facility]([address] [place] [address]) TELE CONSULT [id number] Lab results / DON Murphy 03/29 [employer] [facility] [employer](8 7 [facility] 4) [facility]([address] [place] [address]) OUTPATIENT [id number] f/u migrain es VIJAY MCKINNEY 04/26 Released w/o Limitations [employer](8 7 [facility] 4) [facility]([address] [place] [address]) OUTPATIENT [id number] F/U for Neurolo gy VIJAY MCKINNEY R 08/11 Released w/o Limitations [employer](8 7 [facility] 4) [facility]([address] [place] [address]) OUTPATIENT [id number] fu on labs VIJAY MCKINNEY 10/11 Released w/o Limitations [employer](8 7 [facility] 4) [facility]([address] [place] [address]) TELE CONSULT [id number] f/u appt VIJAY MCKINNEY 10/12 [employer](8 7 [facility] 4) [facility]([address] [place] [address]) OUTPATIENT [id number] results off base appt and DON Driver 12/31 Released w/o Limitations [employer](8 7 [facility] 4) [facility] Primary Care) OUTPATIENT [id number] sinus infecti on LINDSEY ISAACS 01/06 Released w/o Limitations [employer](F D [facility] Primary Care) [facility]([address] [place] [address]) TELE CONSULT [id number] Low BP med extensi on- HITESH Concepcion 02/02 [facility](8 7 [facility] 4) [facility](87 [facility] Team White) OUTPATIENT [id number] possibl e ear infecti on TASNEEM NGUYEN 11/27 Sick at Home/Quarter s [facility](8 7 [facility] Team White) [address] [place] [address]([facility] White) OUTPATIENT [id number] dizzine ss TASNEEM NGUYEN 02/26 Released with Work/Duty Limitations [facility](8 7 [facility] Team White) [address] [place] [address]([address] [place] [address]) TELE CONSULT [id number] Notes Entered by: Callie SOSA 29 Feb 2012 0720 ------- ------- ------- ------- -- Consult with gibson r about meds/ROGELIO Crowder 02/[address] [place] [address]([address] [place] [address]) [address] [place] [address]([facility] Team Blue) TELE CONSULT [id number] Notes Entered by: SA RA Maria Fernanda KELLEY 12 Mar 2012 1624 ------- ------- ------- ------- -- MRI results PRABHAKAR KELLEY 03/[address] [place] [address](8 7 [facility] Team Blue) [address] [place] [address]([facility] Team Blue) TELE CONSULT [id number] Notes Entered by: ARTHUR ARELLANO 21 Mar 2012 0821 ------- ------- ------- ------- -- MiriamofPRABHAKAR Emerson 03/[address] [place] [address]([address] [place] [address] Team Blue) [address] [place] [address]([address] [place] [address]) OUTPATIENT [id number] Notes Entered by: Kris LOPEZ 02 Apr 2012 0852 ------- ------- ------- ------- -- F/U on Meds PRABHAKAR KELLEY 04/02 Released w/o Limitations [address] [place] [address] [facility](8 7 [facility] 4) [facility]([address] [place] [address]) TELE CONSULT [id number] Notes Entered by: Callie SOSA 14 May 2012 1341 ------- ------- ------- ------- -- refill/ SHWETA Castillo 05/14 [facility](8 7 [facility] 4) [address] [place] [address]([address] [place] [address]) TELE CONSULT [id number] Notes Entered by: CARMEL RICHMOND 23 Jul 2012 1046 ------- ------- ------- ------- -- Network Results -Cardio logy- SHWETA MENDOZA 07/[address] [place] [address](8 7 [facility] 4) [address] [place] [address]([address] [place] [address]) TELE CONSULT [id number] Notes Entered by: Janette CHU 08 Aug 2012 0720 ------- ------- ------- ------- -- Cough, chest congest ion// SHWETA CASTILLO 08/08 [facility](8 7 [facility] 4) [address] [place] [address]([address] [place] [address]) TELE CONSULT [id number] Notes Entered by: Callie SOSA 04 Oct 2012 0932 ------- ------- ------- ------- -- Savita ledesma/SHWETA Rizzo nd 10/04 [facility](8 7 [facility] 4) [address] [place] [address]([address] [place] [address]) TELE CONSULT [id number] Notes Entered by: ANDREEA SOLANO 20 Nov 2012 0815 ------- ------- ------- ------- -- Network Results - Allergy - 10/24 SHWETA MENDOZA 11/20 [facility](8 7 [facility] 4) [address] [place] [address]([address] [place] [address]) TELE CONSULT [id number] Notes Entered by: THANH JUAREZ 24 Dec 2012 1045 ------- ------- ------- ------- -- Renew EPS referra l at [facility] : SHWETA CASTILLO 12/[address] [place] [address] Group([address] [place] [address] 4) [address] [place] [address]([address] [place] [address]) TELE CONSULT [id number] Notes Entered by: ANDREEA SOLANO 13 Feb 2013 0823 ------- ------- ------- ------- -- Network Results - Cardio - 12/24 SHWETA MENDOZA 02/[address] [place] [address]([address] [place] [address]) [address] [place] [address] Arturo [facility] Fam Res Tm Green) OUTPATIENT [id number] new patient , med renewal [phone] JOSE LUDWIG Antonio 05/13 Released w/o Limitations [address] [place] [address] Arturo Kiana [facility] Fam Res Tm Green) [address] [place] [address] Arturo [facility])([facility] Fam Res Tm Red) TELE CONSULT [id number] Notes Entered by: DONAVON ZUÑIGA 17 Dec 2013 0833 ------- ------- ------- ------- -- L ankle pain/Ca dle/609 .444.64 01* DILIP PAYNE 12/[address] [place] [address] Arturo [facility])([facility] Fam Res Tm Red) [address] [place] [address])(Ndo [facility] Fam Res Tm Red) OUTPATIENT [id number] left ankle pain ERIC FRAIRE 12/18 Released w/o Limitations [address] [place] [address])([facility] Fam Res Tm Red) [address] [place] [address])([facility] Fam Res Tm Red) TELE CONSULT [id number] Notes Entered by: ME HAKEEM GARCIA 16 Jan 2014 1335 ------- ------- ------- ------- -- Referra l renewal -Cardio logy CESSNA, GENIA Geri 01/16 [facility] Arturo [facility] Fam Res Tm Red) [address] [place] [address] Arturo Kiana [facility])([facility] Fam Res Tm Red) TELE CONSULT [id number] Notes Entered by: LISSY KLEIN 14 Jul 2014 0755 ------- ------- ------- ------- -- NAL UCC/prabhu garza/609. 444.640 1 DILIP PAYNE 07/[address] [place] [address] Group Arturo [facility] Fam Res Tm Red) [address] [place] [address] Arturo [facility] Fam Res Tm Red) OUTPATIENT [id number] [facility] ANITRA BYRD 03/03 Released w/o Limitations [address] [place] [address] Arturo [facility] Fam Res Tm Red) [address] [place] [address] Arturo [facility] Fam Res Tm Red) TELE CONSULT [id number] Notes Entered by: DEE HANEY 07 Jul 2015 0949 ------- ------- ------- ------- -- Cardiol ogy Refer l Renewal BRENDAN HANEY 07/07 Referred for Appointment [address] [place] [address] Arturo [facility] Fam Res Tm Red) [address] [place] [address] Arturo [facility] Fam Res Tm Red) TELE CONSULT [id number] Notes Entered by: FRANK AYOUB 05 Oct 2015 1033 ------- ------- ------- ------- -- Med Ernie / Aguiar / DILIP PAYNE 10/[address] [place] [address] Arturo [facility] Fam Res Tm Red) [address] [place] [address] Arturo [facility])([employer]) OUTPATIENT [id number] Annual WWE [id number] DIVINA GUPTA 10/08 Released w/o Limitations [address] [place] [address])(G ynecolo gy) [address] [place] [address])([employer]) TELE CONSULT [id number] Notes Entered by: KILO PAZ 21 Oct 2015 1045 ------- ------- ------- ------- -- Test results KILO PAZ 10/[address] [place] [address])(G ynecolo gy) [address] [place] [address])([employer] ecology) TELE CONSULT [id number] Notes Entered by: KILO PAZ 03 Nov 2015 0923 ------- ------- ------- ------- -- HPV questio ns KILO PAZ 11/[address] [place] [address])(G ynecolo gy) [address] [place] [address])([employer] ecology) TELE CONSULT [id number] Notes Entered by: KILO PAZ 26 Jan 2017 1416 ------- ------- ------- ------- -- Follow up appt KILO PAZ 01/[address] [place] [address])(G ynecolo gy) [address] [place] [address])([employer] ecology) OUTPATIENT [id number] dysplas ia pt - wwe w/jacinto garcía - [phone] JIMMY JACOBSEN 02/02 Released w/o Limitations [address] [place] [address])(G ynecolo gy) [address] [place] [address])([employer]) TELE CONSULT [id number] Notes Entered by: SIENA JACOBSEN 03 Feb 2017 0908 ------- ------- ------- ------- -- Test results KILO PAZ 02/[address] [place] [address])(G ynecolo gy) [address] [place] [address])([employer]) TELE CONSULT [id number] Notes Entered by: ADRI CASTELAN LT 10 Feb 2017 1131 ------- ------- ------- ------- -- Result JACKSONKILO Geri 02/[address] [place] [address])(G ynecolo gy) [address] [place] [address])(War rior Op Med Cln Tm A Ad) OUTPATIENT [id number] left elbow pain x1 month/m ole under right arm, herminio salomon / SP SÁNCHEZ 04/24 Released w/o Limitations [address] [place] [address])(W arrior Op Med Cln Tm A Ad) [address] [place] [address])(Min or Procedure Clinic) OUTPATIENT [id number] Neoplas m of uncerta in behavio r of skin KAYLIN HARRIS 05/29 Released w/o Limitations [address] [place] [address])(M inor Procedu re Clinic) [address] [place] [address])(Sco tt [facility] Fam Res Tm Green) TELE CONSULT [id number] Notes Entered by: SRI GUADALUPE 09 Jun 2017 1610 ------- ------- ------- ------- -- Tissue Result KAYLIN HARRIS 06/[address] [place] [address])(S cott [facility] Fam Res Tm Green) [address] [place] [address])(Fam lawson Med Tm B Non-AD BCC) TELE CONSULT [id number] Notes Entered by: LEOBARDO SHANE 03 Oct 2017 0932 ------- ------- ------- ------- -- Eugene Priest (appt 13 November)/ Santhosh/ GUADALUPE JACKSON 10/03 Referred for Appointment [address] [place] [address])(F amily Med Tm B Non-AD BCC) [address] [place] [address] Group Arturo B ([facility])(Fam lawson Med Tm B Non-AD BCC) OUTPATIENT [id number] left foot pain - [phone] BRITANY JARVIS 12/18 Released w/o Limitations [facility] Arturo [facility] ([facility])(F amily Med Tm B Non-AD BCC) [employer] [place] ([facility])(Fam lawson Med Tm B Non-AD BCC) TELE CONSULT [id number] Notes Entered by: JANAY DIAS RET 18 Dec 2017 1536 ------- ------- ------- ------- -- Radiolo gy Results /Santhosh / [facility] CHELSIE SCHUSTER 12/18 Referred for Appointment [employer] Arturo [facility])(F amily Med Tm B Non-AD BCC) [facility])(Fam lawson Med Tm B Non-AD BCC) TELE CONSULT [id number] Notes Entered by: BRITANY HOOK 18 Dec 2017 1731 ------- ------- ------- ------- -- Xray Results CHELSIE SCHUSTER 12/18 Referred for Appointment [employer] [facility])(F amily Med Tm B Non-AD BCC) [address] [place] [address])([employer]) OUTPATIENT [id number] annual well woman - [phone] SAKSHI OBANDO 07/02 Released w/o Limitations [employer] Arturo [facility] ([facility])(G ynecolo gy) [employer] [facility])(War rior Op Med Cln Tm A Ad) TELE CONSULT [id number] Notes Entered by: FRANK AYOUB 19 Sep 2018 1447 ------- ------- ------- ------- -- Med Ernie / Pili / - sgj TATYANA BALL 09/19 Referred for Appointment [address] [place] [address])(W arrior Op Med Cln Tm A Ad) [address] [place] [address])([employer]) TELE CONSULT [id number] Notes Entered by: Janette OBANDO 12 Oct 2018 1849 ------- ------- ------- ------- -- SANDY Flores 10/13 Released w/o Limitations [address] [place] [address])(G ynecolo gy) [address] [place] [address])([employer]) OUTPATIENT [id number] 1 vaginal itching - [phone] DIVINA GUPTA 12/18 Released w/o Limitations [address] [place] [address])(G ynecolo gy) [address] [place] [address])(War rior Op Med Cln Tm A Ad) OUTPATIENT [id number] Red/bum py/blis ter/itc hy areas on the arms/le gs [phone] JULIANA LOZANO 12/24 Released w/o Limitations [address] [place] [address])(W arrior Op Med Cln Tm A Ad) [address] [place] [address])(War rior Op Med Cln Tm A Ad) OUTPATIENT [id number] [address] [address] [facility] f/u for poison emily/[phone] BRITANY JARVIS 12/27 Released w/o Limitations [address] [place] [address])(W arrior Op Med Cln Tm A Ad) [address] [place] [address])(War rior Op Med Cln Tm A Ad) TELE CONSULT [id number] Notes Entered by: NIRANJAN VILLATORO 18 Feb 2019 0926 ------- ------- ------- ------- -- Eugene priest Feb appt - Trudy z - - tsg BLAYNE DAS 02/18 Other Not Elsewhere Classified [address] [place] [address])(W arrior Op Med Cln Tm A Ad) [address] [place] [address] Group Arturo [facility]War rior Op Med Cln Tm A Ad) TELE CONSULT [id number] Notes Entered by: RADHA URIBE 09 May 2019 1258 ------- ------- ------- ------- -- Medicat ion Inquiry / Trudy z/ [phone] - BLAYNE Francis 05/09 Other Not Elsewhere Classified [address] [place] [address] Group Arturo [facility])(W arrior Op Med Cln Tm A Ad) [address] [place] [address] Arturo B [facility])([employer]) OUTPATIENT [id number] DYSPLAS IA PT - ANNUAL WWE - [phone] SAKSHI OBANDO 07/10 Released w/o Limitations [address] [place] [address] Arturo [facility])(G ynecolo gy) [address] [place] [address] Arturo [facility])(War rior Op Med Cln Tm A Ad) OUTPATIENT [id number] 1 f rash on chest [phone] DEYSI COOK 07/15 Released w/o Limitations [address] [place] [address] Arturo [facility])(W arrior Op Med Cln Tm A Ad) [address] [place] [address] Arturo [facility])(Sco tt [facility] Fam Res Tm Green) TELE CONSULT [id number] Notes Entered by: LACHO FELIZ 27 Feb 2020 0852 ------- ------- ------- ------- -- Eugene Priest / Fredis / PEACE ARANDA 02/26 Other Not Elsewhere Classified [address] [place] [address] Arturo [employer] [facility]S cott [facility] Fam Res Tm Green) [address] [place] [address] Art[facility])(Sco tt [facility] FAMRES Tm Blue) OUTPATIENT [id number] X/B-Vir tual Appt-so re throat/ runny nose/co ngestio n/tired /cough [id number] MAHAMED PERERA 04/13 Released w/o Limitations [address] [place] [address] Arturo [facility]S cott [facility] FAMRES Tm Blue) [address] [place] [address] Arturo [facility])([employer] ecology) TELE CONSULT [id number] Notes Entered by: BAIRON MENDOZA 30 Apr 2020 1559 ------- ------- ------- ------- -- Scanned bilater al mammogr /Mar 02/scan lanette into HAIMS (Brown patient ) DIVINA GUPTA 04/[address] [place] [address] Arturo [facility])(G ynecolo gy) [address] [place] [address] Arturo [facility])([employer] ecology) OUTPATIENT [id number] DYSPLAS [place] PT - [facility] [phone] SAKSHI OBANDO 07/29 Released w/o Limitations [address] [place] [address] [facility]G ynecolo gy) [address] [place] [address] [facility])([employer] ecology) TELE CONSULT [id number] Notes Entered by: Janette OBANDO 10 Aug 2020 1557 ------- ------- ------- ------- -- KILO Durham 08/10 Released to Self [facility] [address] [place] [address] Arturo [facility])(G ynecolo gy) [address] [place] [address] Arturo [facility])([employer] ecology) TELE CONSULT [id number] Notes Entered by: Janette OBANDO 21 Aug 2020 1254 ------- ------- ------- ------- -- Lab KILO PAZ 08/21 Referred for Appointment [address] [place] [address] Arturo [facility])(G ynecotatiana gy) [address] [place] [address])(Sco tt [facility] Fam Res Tm Green) TELE CONSULT [id number] Notes Entered by: RADHA URIBE 24 Aug 2020 1312 ------- ------- ------- ------- -- F/U Marlont Job randhawa/ Fredis / [phone] - [facility] AMPARO MCNEAL 08/[address] [place] [address] Arturo [facility]S cott [facility] Fam Res Tm Green) [address] [place] [address] Arturo [facility])(Sco tt [facility] Fam Res Tm Green) OUTPATIENT [id number] Virtual - F/U SUPERVIS[employer] STONE Lab Results AMPARO MCNEAL 08/25 Released w/o Limitations [address] [place] [address] Arturo [facility]S cott [facility] Fam Res Tm Green) [address] [place] [address] Arturo [facility])(Sco tt [facility] Fam Res Tm Green) TELE CONSULT [id number] Notes Entered by: NABIL JANSEN 04 Sep 2020 0906 ------- ------- ------- ------- -- SX-body aches/f atigue/ headach e/cough /farrel l/[phone] PAOLO Lomas 09/04 Other Not Elsewhere Classified [address] [place] [address] Arturo [facility]S cott [facility] Fam Res Tm Green) [address] [place] [address] Arturo B [facility])(Cade demic Virus) OUTPATIENT [id number] COVID testing , has JULIANA Peguero 09/04 Released w/o Limitations [address] [place] [address] Arturo [facility])(P andemic Virus) [address] [place] [address] Arturo B [facility])(Ob/ [employer] Supervisor) TELE CONSULT [id number] Notes Entered by: Kris JONES 07 Sep 2020 1128 ------- ------- ------- ------- -- COVID result ANNE JONES 09/07 Other Not Elsewhere Classified [address] [place] [address] Arturo [facility])(O b/Mail Clerks Supervisor) [address] [place] [address] Arturo [facility])(Sco tt [facility] FAMRES Tm Blue) OUTPATIENT [id number] 3 F2F - left knee pain MACO BRADFORD 10/06 Released w/o Limitations [address] [place] [address] [facility])(S [facility] FAMRES Tm Blue) [address] [place] [address])([facility] tt [facility]) TELE CONSULT [id number] Notes Entered by: WANDA WILD 19 Oct 2020 0856 ------- ------- ------- ------- -- Network results Jesus l Therapy 021 MACO SHAH 10/19 Released to Self Care [address] [place] [address])([facility] FAMRES Tm Blue) [address] [place] [address])([employer] ecology) TELE CONSULT [id number] Notes Entered by: SHANIA JEROME 18 Jan 2021 1408 ------- ------- ------- ------- -- [place] [phone] TIFFANY MOULTON 01/18 Other Not Elsewhere Classified [address] [place] [address])(Vivek silva gy) [address] [place] [address])([employer] ecology) TELE CONSULT [id number] Notes Entered by: NIRANJAN VILLATORO 03 Feb 2021 1601 ------- ------- ------- ------- -- Rx issue - - tsg TIFFANY MOULTON 02/03 Other Not Elsewhere Classified [address] [place] [address])(Vivek silva gy) [address] [place] [address])(Sco tt [facility] Fam Res Tm Green) TELE CONSULT [id number] Notes Entered by: SUKHWINDER ZABALA 15 Jun 2021 0705 ------- ------- ------- ------- -- Smelquiades-Sada mobley/XU LL/618. 799.072 6 PEACE ARANDA 06/15 Referred for Appointment [address] [place] [address])(S cott [facility] Fam Res Tm Green) [address] [place] [address] Arturo [facility])(Cade demic Virus) OUTPATIENT [id number] 1 symptom atic DEEJAY ANDERSONNAZBARRETT Maria Fernanda 06/16 Released w/o Limitations [address] [place] [address] Arturo [facility])(P andemic Virus) [address] [place] [address])(Sco tt [facility]) TELE CONSULT [id number] Notes Entered by: JANAY DIAS RET 08 Oct 2021 1157 ------- ------- ------- ------- -- STAT 12 October Cardiol ogy Referra ledesma/Xu /618. 799.072 6 PAOLO KITCHEN 10/08 Other Not Elsewhere Classified [address] [place] [address])([facility] Green) [address] [place] [address])([employer] ecology) OUTPATIENT [id number] E MAKAYLA LARRY 10/14 Released w/o Limitations [address] [place] [address] Arturo [facility])(G ymerlyn gy) [address] [place] [address] Arturo B [facility])(Ndo tt [facility]) TELE CONSULT [id number] Notes Entered by: Antonio RIGGS 12 Nov 2021 1615 ------- ------- ------- ------- -- Network results Cardiol ogy 020 and 022 AMPARO ROMERO 11/[address] [place] [address] Arturo [facility] [employer]) [address] [place] [address] Arturo B [facility])([employer] Super[employer] ecology) TELE CONSULT [id number] Notes Entered by: AUBRIE OAKLEY 28 Mar 2022 1243 ------- ------- ------- ------- -- MAKAYLA SOLOMON 03/[address] [place] [address] Arturo B [facility])(G shira gy) [address] [place] [address] Arturo [facility])(Sco tt [facility] Fam Res Tm Green) TELE CONSULT [id number] Notes Entered by: NIRANJAN VILLATORO 26 Apr 2022 1519 ------- ------- ------- ------- -- Sx; Multipl e Sx - COVID positi gudelia Mcneal - - [facility]* AMPARO MCNEAL 04/[address] [place] [address] Arturo [facility]S cott [facility] Fam Res Tm Green) [address] [place] [address] Arturo [facility])(Sco tt [facility] Res Tm Green) TELE CONSULT [id number] Notes Entered by: RADHA URIBE 29 Apr 2022 0704 ------- ------- ------- ------- -- SX- Vaginal Itching -Discha zeke / Fredis / DILIP PAYNE 04/29 Released to Self Care [address] [place] [address] Arturo [facility])(S cott [facility] Fam Res Tm Green) [address] [place] [address] Arturo [facility])(Sco tt [facility] Res Tm Green) TELE CONSULT [id number] Notes Entered by: DAGOBERTO AGRAWAL 14 Jun 2022 1006 ------- ------- ------- ------- -- Eugene Shaw /Aura ledesma/ PAOLO KITCHEN 06/14 Other Not Elsewhere Classified [address] [place] [address] Arturo [facility])(S cott [facility] Fam Res Tm Green) [address] [place] [address] Arturo [facility])(Sco tt [facility] Fam Res Tm Green) OUTPATIENT [id number] f2f, check up, wants to discuss alzheim er, family hx SHAILA FERRARO 07/18 Released w/o Limitations [address] [place] [address] Arturo Kiana [facility]S cott [facility] Fam Res Tm Green) [address] [place] [address] Arturo [facility])(Sco tt [facility] Fam Res Tm Green) TELE CONSULT [id number] Notes Entered by: NIRANJAN VILLATORO 11 Aug 2022 0949 ------- ------- ------- ------- -- Lab results - Fredis - - tsg CARRIE AVELINA Antonio 08/11 Released to Self Care [address] [place] [address] Arturo [facility])(S cott [facility] Fam Res Tm Green) [address] [place] [address] Arturo [facility])(Sco tt [facility] Res Green) OUTPATIENT [id number] VIRTUAL /DISCUS S LABS (BOOKED PER DOC) SHAILA FERRARO 08/25 Released w/o Limitations [address] [place] [address] Arturo [facility])(S cott [facility] Fam Res Tm Green) [address] [place] [address] Arturo [facility])(Sco tt [facility] Res Green) TELE CONSULT [id number] Notes Entered by: DAGOBERTO AGRAWAL 01 Nov 2022 0913 ------- ------- ------- ------- -- RX Renewal -Kwamer lit Shaw /Aura ledesma/ PAOLO KITCHEN 11/01 Other Not Elsewhere Classified [address] [place] [address] Arturo [facility])(S cott [facility] Fam Res Tm [place]) [address] [place] [address] Arturo [facility])(Sco tt [facility] Res Green) OUTPATIENT [id number] virtual , pt. contact #/ , tessie Mijares am, pt. denjesus streeter/JOVI Nguyen 11/03 Released w/o Limitations [address] [place] [address])(S [facility] Fam Res Tm [place]) [address] [place] [address] [facility])(Sco tt [facility] Res Green) TELE CONSULT [id number] Notes Entered by: ELIAS VALENTIN 28 Nov 2022 1139 ------- ------- ------- ------- -- Referra callie Shaw / FREDIS / PAOLO KITCHEN 11/28 Other Not Elsewhere Classified [employer] Arturo BAKER ([facility])(S laith [facility] Tien Jackson) 0055C-375 th [facility]Sc paige Between Visit [id number] 04/22 Discharge Disposition: Home or Self Care 0055C-3 [facility]th [facility]- Art[facility] 0055C-375 th [facility] Between Visit [id number] 04/23 Discharge Disposition: Home or Self Care 0055C-3 [facility] 6130C-Af- C-[facility]Th [facility] pa[facility] Between Visit [id number] 05/22 Discharge Disposition: Home or Self Care 6130C-A f-C-[facility] 0055C-375 th [facility] pa[facility] Between Visit [id number] 05/22 Discharge Disposition: Home or Self Care 0055C-3 [facility] 0055A-375 [facility] Outpatient [id number] LEVON Irving 07/19 Discharge Disposition: Home or Self Care 0055A-3 [facility] Procedures Combined list of: 1) Procedures from Department of Veterans Affairs facilities going back up to thelast 18 months, not all VA non-surgical procedures are included; 2) All procedures from the Department of Defense facilities. Procedure Procedure Type Code Date Perfomer Comments [facility] e delivery only; delivery only; 89966 006 0055C-375 th [facility] Control oropharyngeal hemorrhage, primary or secondary (eg, post-tonsillectomy); complicated, requiring hospitalization Control oropharyngeal hemorrhage, primary or secondary (eg, post-tonsillectomy); complicated, requiring hospitalization 79563 0055C-375 th [facility] Non-Physician Phone Call To Patient/Provider Brief (5-10min) Non-Physician Phone Call To Patient/Provider Brief (5-10min) [id number] Supervised Injection Intramuscular Supervised Injection Intramuscular [phone]Supervised Specimen Handling / Transfer: Office To Lab -Supervised Specimen Handling / Transfer: Office To Lab [id number] 019 DIVINA GUPTA Vaginal Wet [place] Vaginal Wet [place] 89914 019 DIVINA GUPTA Vaginal ANTONY Prep Vaginal ANTONY Prep [phone] DIVINA GUPTA Disease management program, follow-up/darlyn e ment 019 BRITANY JARVIS [facility] Non-Physician Phone Call To Patient/Provider Brief (5-10min) Non-Physician Phone Call To Patient/Provider Brief (5-10min) [id number] [phone] CHELSIE SCHUSTER [facility] Non-Physician Phone Call To Patient/Provider Brief (5-10min) Non-Physician Phone Call To Patient/Provider Brief (5-10min) [id number] [phone] GUADALUPE JACKSON [facility] Shaving Of Lesion Trunk Up to .5cm Shaving Of Lesion Trunk Up to .5cm [id number] [phone] KAYLIN HARRIS [facility] Screening papanicolaou smear; obtaining, preparing and conveyance of cervical or vaginal smear to laboratory 017 JIMMY JACOBSEN [facility] Screening papanicolaou smear; obtaining, preparing and conveyance of cervical or vaginal smear to laboratory 016 DIVINA GUPTA [facility] -Supervised Specimen Handling / Transfer: Office To Lab -Supervised Specimen Handling / Transfer: Office To Lab 40722 016 DIVINA GUPTA Vaginal Wet [place] Vaginal Wet [place] 33169 016 DIVINA GUPTA Vaginal ANTONY Prep Vaginal ANTONY Prep 80610 016 DIVINA GUPTA [facility] Non-Physician Phone Call To Patient/Provider Brief (5-10min) Non-Physician Phone Call To Patient/Provider Brief (5-10min) [id number] INEZ CUELLAR [facility] Non-Physician Phone Call To Patient/Provider Brief (5-10min) Non-Physician Phone Call To Patient/Provider Brief (5-10min) [id number] 015 BRENDAN HANEY [facility] Non-Physician Phone Call To Patient/Provider Brief (5-10min) Non-Physician Phone Call To Patient/Provider Brief (5-10min) [phone] DILIP PAYNE Non-Physician Phone Call To Patient/Provider Brief (5-10min) Non-Physician Phone Call To Patient/Provider Brief (5-10min) [phone] DILIP PAYNE Pulse Oximetry Pulse Oximetry [id number] TASNEEM NGUYEN ECG 12-Lead ECG 12-Lead [id number] TASNEEM NGUYEN Screening Test Of Visual Acuity, Quantitative, Bilateral Screening Test Of Visual Acuity, Quantitative, Bilateral [phone] JORDEN DUBOIS [facility] ECG 12-Lead With Interpretation And Report ECG 12-Lead With Interpretation And Report [id number] LINDSEY ISAACS [facility] (2 or More Individual(s)) [facility] (2 or More Individual(s)) 60130 009 EL HSELTON [facility] Services Provided On An Emergency Basis In The Office 009 PERCY CHAN Ophthalmological Prior Patient Start Comprehensive Care Ophthalmological Prior Patient Start Comprehensive Care 68519 008 DON DOUGLAS Determination Of Refractive State Determination Of Refractive State 87332 008 DON DOUGLAS Services Provided On An Emergency Basis In The Office 007 SHANIA DC [facility] Screening papanicolaou smear; obtaining, preparing and conveyance of cervical or vaginal smear to laboratory 007 JO FRANCO [facility] Fundus Photography Fundus Photography 25594 09/10 007 DON DOUGLAS Optical Coherence Tomography 007 DON DOUGLAS Determination Of Refractive State Determination Of Refractive State 71221 007 DON DOUGLAS Ophthalmological New Patient Start Comprehensive Care Ophthalmological New Patient Start Comprehensive Care 39460 007 DON DOUGLAS Screening papanicolaou smear; obtaining, preparing and conveyance of cervical or vaginal smear to laboratory 006 DIVINA GUPTA Screening papanicolaou smear; obtaining, preparing and conveyance of cervical or vaginal smear to laboratory ROSALEE DANIELS [facility] Vaginal Wet [place] Vaginal Wet [place] 53831 006 ROSALEE DANIELS [facility] Nutrition Therapy Group (2 or More Individual(s)) Medical Nutrition Therapy Group (2 or More Individual(s)) 92025 ANNE MYERS [facility] Immunization Administration One Vaccine Immunization Administration One Vaccine 49576 005 CECILE ADKINS [facility] Influenza Split Virus Vaccine Age 3+ Years Intramuscular 005 CECILE ADKINS [facility] Non-Physician Phone Call To Patient/Provider Brief (5-10min) Non-Physician Phone Call To Patient/Provider Brief (5-10min) 74036 BLAYNE DAS [facility] Vaginal ANTONY Prep Vaginal ANTONY Prep 60001 SAKSHI CLAYTON [facility] Vaginal Wet [place] Vaginal [place] 06509 SAKSHI OBANDO [facility] Screening papanicolaou smear; obtaining, preparing and conveyance of cervical or vaginal smear to laboratory BERNICE OBANDO [facility] Waiver services; not otherwise specified (NOS) AMPARO MCNEAL [facility] NONINVASIVE EAR OR PULSE OXIMETRY FOR OXYGEN SATURATION; SINGLE DETERMINATION [facility] INFLUENZA VIRUS VACCINE, TRIVALENT (IIV3), SPLIT VIRUS, PRESERVATIVE FREE, 0.5 ML DOSAGE, FOR INTRAMUSCULAR USE [facility] SCREENING TEST OF VISUAL ACUITY, QUANTITATIVE, BILATERAL [facility] ELECTROCARDIOGRAM, ROUTINE ECG WITH AT LEAST 12 LEADS; WITH INTERPRETATION AND REPORT [facility] MEDICAL NUTRITION THERAPY; GROUP (2 OR MORE INDIVIDUAL(S)), EACH 30 MINUTES [facility] SERVICE(S) PROVIDED ON AN EMERGENCY BASIS IN THE OFFICE, WHICH DISRUPTS OTHER SCHEDULED OFFICE SERVICES, IN ADDITION TO BASIC SERVICE [facility] OPHTHALMOLOGICAL SERVICES: MEDICAL EXAMINATION AND EVALUATION, WITH INITIATION OR CONTINUATION OF DIAGNOSTIC AND TREATMENT PROGRAM; COMPREHENSIVE, ESTABLISHED PATIENT, 1 OR MORE VISITS [facility] SERVICE(S) PROVIDED ON AN EMERGENCY BASIS IN THE OFFICE, WHICH DISRUPTS OTHER SCHEDULED OFFICE SERVICES, IN ADDITION TO BASIC SERVICE [facility] SCREENING PAPANICOLAOU SMEAR; OBTAINING, PREPARING AND CONVEYANCE OF CERVICAL OR VAGINAL SMEAR TO LABORATORY 007 [facility] OPHTHALMOLOGICAL SERVICES: MEDICAL EXAMINATION AND EVALUATION WITH INITIATION OF DIAGNOSTIC AND TREATMENT PROGRAM; COMPREHENSIVE, NEW PATIENT, 1 OR MORE VISITS 007 [facility] BRIEF EMOTIONAL/BEHAVIORAL ASSESSMENT (EG, DEPRESSION INVENTORY, ATTENTION-DEFICIT/HY PERACTIVITY DISORDER [ADHD] SCALE), WITH SCORING AND DOCUMENTATION, PER STANDARDIZED INSTRUMENT 023 DoD WAIVER SERVICES; NOT OTHERWISE SPECIFIED (NOS) 023 DoD TELE ASSESS & MGT SRV PROV QUAL NONPHYS HLTH CARE PRO TO EST PAT,PARENT,GUARD NOT ORIG REL ASSESS & MGT SRV PROV W/IN PREV 7 DAYS NOR LEAD ASSESS & MGT SRV/PX W/IN NXT 24 HR/SOON APT;5-10 MIN MED DIS 022 DoD TELE ASSESS & MGT SRV PROV QUAL NONPHYS HLTH CARE PRO TO EST PAT,PARENT,GUARD NOT ORIG REL ASSESS & MGT SRV PROV W/IN PREV 7 DAYS NOR LEAD ASSESS & MGT SRV/PX W/IN NXT 24 HR/SOON APT;5-10 MIN MED DIS 022 DoD TELE ASSESS & MGT SRV PROV QUAL NONPHYS HLTH CARE PRO TO EST PAT,PARENT,GUARD NOT ORIG REL ASSESS & MGT SRV PROV W/IN PREV 7 DAYS NOR LEAD ASSESS & MGT SRV/PX W/IN NXT 24 HR/SOON APT;5-10 MIN MED DIS 022 DoD TELE ASSESS & MGT SRV PROV QUAL NONPHYS HLTH CARE PRO TO EST PAT,PARENT,GUARD NOT ORIG REL ASSESS & MGT SRV PROV W/IN PREV 7 DAYS NOR LEAD ASSESS & MGT SRV/PX W/IN NXT 24 HR/SOON APT;5-10 MIN MED DIS 022 DoD TELE ASSESS & MGT SRV PROV QUAL NONPHYS HLTH CARE PRO TO EST PAT,PARENT,GUARD NOT ORIG REL ASSESS & MGT SRV PROV W/IN PREV 7 DAYS NOR LEAD ASSESS & MGT SRV/PX W/IN NXT 24 HR/SOON APT;5-10 MIN MED DIS 021 DoD TELE ASSESS & MGT SRV PROV QUAL NONPHYS HLTH CARE PRO TO EST PAT,PARENT,GUARD NOT ORIG REL ASSESS & MGT SRV PROV W/IN PREV 7 DAYS NOR LEAD ASSESS & MGT SRV/PX W/IN NXT 24 HR/SOON APT;5-10 MIN MED DIS 021 DoD TELE ASSESS & MGT SRV PROV QUAL NONPHYS HLTH CARE PRO TO EST PAT,PARENT,GUARD NOT ORIG REL ASSESS & MGT SRV PROV W/IN PREV 7 DAYS NOR LEAD ASSESS & MGT SRV/PX W/IN NXT 24 HR/SOON APT;5-10 MIN MED DIS 021 DoD WAIVER SERVICES; NOT OTHERWISE SPECIFIED (NOS) 021 DoD TELE ASSESS & MGT SRV PROV QUAL NONPHYS HLTH CARE PRO TO EST PAT,PARENT,GUARD NOT ORIG REL ASSESS & MGT SRV PROV W/IN PREV 7 DAYS NOR LEAD ASSESS & MGT SRV/PX W/IN NXT 24 HR/SOON APT;5-10 MIN MED DIS DoD SCREENING PAPANICOLAOU SMEAR; OBTAINING, PREPARING AND CONVEYANCE OF CERVICAL OR VAGINAL SMEAR TO LABORATORY DoD WAIVER SERVICES; NOT OTHERWISE SPECIFIED (NOS) DoD TELE ASSESS & MGT SRV PROV QUAL NONPHYS HLTH CARE PRO TO EST PAT,PARENT,GUARD NOT ORIG REL ASSESS & MGT SRV PROV W/IN PREV 7 DAYS NOR LEAD ASSESS & MGT SRV/PX W/IN NXT 24 HR/SOON APT;5-10 MIN MED DIS 019 DoD TELE ASSESS & MGT SRV PROV QUAL NONPHYS HLTH CARE PRO TO EST PAT,PARENT,GUARD NOT ORIG REL ASSESS & MGT SRV PROV W/IN PREV 7 DAYS NOR LEAD ASSESS & MGT SRV/PX W/IN NXT 24 HR/SOON APT;5-10 MIN MED DIS 019 DoD THERAPEUTIC, PROPHYLACTIC, OR DIAGNOSTIC INJECTION (SPECIFY SUBSTANCE OR DRUG); SUBCUTANEOUS OR INTRAMUSCULAR DoD HANDLING AND/OR CONVEYANCE OF SPECIMEN FOR TRANSFER FROM THE OFFICE TO A LABORATORY [facility] DISEASE MANAGEMENT PROGRAM, FOLLOW-UP/REASSESSME NT DoD TELE ASSESS & MGT SRV PROV QUAL NONPHYS HLTH CARE PRO TO EST PAT,PARENT,GUARD NOT ORIG REL ASSESS & MGT SRV PROV W/IN PREV 7 DAYS NOR LEAD ASSESS & MGT SRV/PX W/IN NXT 24 HR/SOON APT;5-10 MIN MED DIS 018 DoD TELE ASSESS & MGT SRV PROV QUAL NONPHYS HLTH CARE PRO TO EST PAT,PARENT,GUARD NOT ORIG REL ASSESS & MGT SRV PROV W/IN PREV 7 DAYS NOR LEAD ASSESS & MGT SRV/PX W/IN NXT 24 HR/SOON APT;5-10 MIN MED DIS 018 DoD SHAVING OF EPIDERMAL OR DERMAL LESION, SINGLE LESION, TRUNK, ARMS OR LEGS; LESION DIAMETER 0.5 CM OR LESS 017 DoD SCREENING PAPANICOLAOU SMEAR; OBTAINING, PREPARING AND CONVEYANCE OF CERVICAL OR VAGINAL SMEAR TO LABORATORY 017 DoD HANDLING AND/OR CONVEYANCE OF SPECIMEN FOR TRANSFER FROM THE OFFICE TO A LABORATORY 016 DoD TELE ASSESS & MGT SRV PROV QUAL NONPHYS HLTH CARE PRO TO EST PAT,PARENT,GUARD NOT ORIG REL ASSESS & MGT SRV PROV W/IN PREV 7 DAYS NOR LEAD ASSESS & MGT SRV/PX W/IN NXT 24 HR/SOON APT;5-10 MIN MED DIS 016 DoD TELE ASSESS & MGT SRV PROV QUAL NONPHYS HLTH CARE PRO TO EST PAT,PARENT,GUARD NOT ORIG REL ASSESS & MGT SRV PROV W/IN PREV 7 DAYS NOR LEAD ASSESS & MGT SRV/PX W/IN NXT 24 HR/SOON APT;5-10 MIN MED DIS 015 DoD TELE ASSESS & MGT SRV PROV QUAL NONPHYS HLTH CARE PRO TO EST PAT,PARENT,GUARD NOT ORIG REL ASSESS & MGT SRV PROV W/IN PREV 7 DAYS NOR LEAD ASSESS & MGT SRV/PX W/IN NXT 24 HR/SOON APT;5-10 MIN MED DIS 014 DoD TELE ASSESS & MGT SRV PROV QUAL NONPHYS HLTH CARE PRO TO EST PAT,PARENT,GUARD NOT ORIG REL ASSESS & MGT SRV PROV W/IN PREV 7 DAYS NOR LEAD ASSESS & MGT SRV/PX W/IN NXT 24 HR/SOON APT;5-10 MIN MED DIS 014 DoD SCREENING PAPANICOLAOU SMEAR; OBTAINING, PREPARING AND CONVEYANCE OF CERVICAL OR VAGINAL SMEAR TO LABORATORY 006 [facility] INFUSION, NORMAL SALINE SOLUTION, 250 CC 006 [facility] SCREENING PAPANICOLAOU SMEAR; OBTAINING, PREPARING AND CONVEYANCE OF CERVICAL OR VAGINAL SMEAR TO LABORATORY 006 [facility] MEDICAL NUTRITION THERAPY; GROUP (2 OR MORE INDIVIDUAL(S)), EACH 30 MINUTES 006 [facility] INFLUENZA VIRUS VACCINE, TRIVALENT (IIV3), SPLIT VIRUS, 0.5 ML DOSAGE, FOR INTRAMUSCULAR USE 005 [facility] HANDLING AND/OR CONVEYANCE OF SPECIMEN FOR TRANSFER FROM THE OFFICE TO A LABORATORY 005 [facility] SCREENING PAPANICOLAOU SMEAR; OBTAINING, PREPARING AND CONVEYANCE OF CERVICAL OR VAGINAL SMEAR TO LABORATORY 004 [facility] Social History Combined list of available smoking, tobacco, and other social history from Department of Defense and Veterans Affairs facilities. Social History Type Response Date Comment [facility] e Sex Representation Female (finding) 06/17/2021 Unknown Organization Tobacco Cigarette use: Former-cigarette user. Average PACKS per day: (10 cigarettes = 0.5 packs) 1. *Stopped cigarettes age (*required for former users to complete the Recommendation) 33 Years. Other Tobacco use: Never-other tobacco user (not cigarettes). [facility]ulatory Pharmacy Sexual Orientation Ambula tory Pharmacy Gender identity Ambulator y Pharmacy This section is an empty social history section. [facility] Assessment and Plan Combined list of future care activities from Department of Defense and Veterans Affairs facilities (e.g., assessment and plan notes, appointments, orders, and referrals). Additional future care activities may be listed in the Plan of Care section. Result Assessment and Plan Date Source Assessment and Plan Extracted from:Title : Annual Well Female Author: SHIRLEY ANGELES DO Date: 04/22/24 1. W [facility] adult General Prevention: Colon Cancer Screening: D ue _ D esires Cologuard (Low risk currently) No fhx of colon cancer. Substance use: Denies Skin cancer: Recommended limiting UV exposure and use of sunblock; _ Weight: b riefly reviewed recommendations for active lifestyle and healthy diet Hep C Screen: _ HIV Screen: (15-65) HgbA1C: ( 40-70 y/o and BMI >30) 4 .5% PHQ-2 as above Mammo (50-74 Q2 years): G ets done at [facility], see below - - BRCA: No known personal or FHx of breast/ovarian/tubal/peritoneal cancer or known familial gene mutations Pap: ( 21-29 Q3 years cyto only or Q5 cyto+HPV, 30-65 Q5 years) D [facility]. STI: ( women 24 and younger) Immunizations: Flu Immunization: Due Fall 2023 COVID-19: Booster D ue 2. H yperlipidemia New to Patient, Untreated Chol 212, HDL 72, LDL 125 Lost 35 lbs. [place] [employer] [place]. Plan: Discussed Nutrition Referral vs Low Cholesterol Diet Joint Decision Making for Low Cholesterol Diet Repeat lab in 3-6 months F/U in 6 months 3. A nxiety Chronic, Controlled Plan: Lorazepam 0.5mg PO PRN for anxiety 10 pills for the year 4. P ostural orthostatic tachycardia syndrome Chronic, Controlled\ Plan: Continue to follow with cardiology 5. S creening for malignant neoplasm of colon done Desires Cologuard Plan: Cologuard order form filled out and p laced in fax-out folder in teach room 6. S creening for cancer done Mammograms done at [facility] for last 5 years all low risk. Wants to continue to get them there. Plan: Referral sent for outside Radiology/mammogram Ordered: Referral Request 2.0 - DoD Orders: LORazepam(LORazepam 0.5 mg oral tablet), 1 tab(s), Oral, As Directed, PRN anxiety, # 10 tab(s), 0 total refill(s), Maintenance, 1 tab(s) Oral As Directed,PRN:as needed for anxiety, Pharmacy: [facility] [Last filled 04/22/24] Shirley Angeles DO, , [facility] Resident Provider Addendum by KITA CRUZ MD on May 03, 2024 14:06:04 CDT I was present and available in the family medicine clinic during the patient's appointment.? The case was discussed with me and I agree with the assessment and plan as documented. ? HLF Extracted from:Title: [place] [facility] Supervisor Office Clinic Note Author: ANURADHA AMIN NP Date: 04/19/24 1. E ncounter for gynecological examination (general) (routine) with abnormal findings Cervical Cancer Screening: Pap Smear and HPV testing c ollected today. If negative, pt may repeat in 5 years Breast Cancer Screening: CBE d eclined.. Discussed breast self-awareness. Mammogram r ecommended. Pt will self-schedule. Colon Cancer Screening: Initiate at age 45 for average risk patients. P t prefers an alternative to colonoscopy. She p lans to o rder Cologuard. Immunizations: s jamee reviewed. Reproductive Life Planning: _spouse w/vas Mental Health: Patient declined any MH needs today Age-appropriate Prevention Education: Maria Fernanda enciso.tobacco and alcohol use; healthy eating and exercise; preventive screening for chronic diseases. 2. E ncounter for screening for malignant neoplasm of cervix Ordered: AP Cytology SUPERVISOR STONE HPV High Risk (16/18/Other) 3. C andidiasis of vulva and vagina BD affirm collected. Clinical findings suggestive of Yeast infection. Pt prefers oral tx. Hygiene measures discussed. Will contact pt if any other infections present on test. F/u if symptoms persist. Ordered: fluconazole(Diflucan 150 mg oral tablet), See Instructions, Take 1 tablet by mouth now and repeat in 3 days for yeast infection, # 2 tab(s), 1 total refill(s), Acute, 04/19/2025, Take 1 tablet by mouth now and repeat in 3 days for yeast infection, Pharmacy: [id number], Fungal... Vaginitis/Vaginosis Panel Reviewed with patient discharge instructions. Written discharge instructions were provided to the patient. Reviewed with patient medication risks, benefits, side effects and instructions for use, if prescribed. Recommended patient to follow up regularly for WWEs, s ooner as discussed above, or as needed for WH concerns, symptoms, or questions. Anuradha Amin, [facility], [facility] Women s Health Nurse Practitioner, Board Certified [address] [place] [address] [employer] [address] [place] [address] comm: Extracted from:Title: FM - Covid-19 Author: TAMRA MCGILL DO Date: 03/19/24 1. C OVID-19 Acute, diagnosed 4 days ago, requesting paxlovid Per lexicom there is no drug interaction with her Ativan or Wegovy - will provide paxlovid BID x5 days. - Provided ER precautions 2. A nxiety Pt with situational anxiety with travel and procedures. Gets 10 Ativan tabs that last 1 year - Last prescription was 10/2022. - Pt requesting 2 tabs prior to next visit with Dr. Angeles in April. - Bridge provided Orders: LORazepam(LORazepam 0.5 mg oral tablet), 1 tab(s), Oral, As Directed, # 2 tab(s), 0 total refill(s), Maintenance, 1 tab(s) Oral As Directed, Pharmacy: [facility] [Not filled] nirmatrelvir-ritonavir(Paxlovid 300 mg-100 mg Dose Pack), See instructions, Take 300 mg nirmatrelvir (two 150 mg tablets) and 100 mg ritonavir (one 100 mg tablet), taking all three tablets together, orally twice daily for 5 days, # 30 tab(s), 0 total refill(s), Maintenance, Take 300 mg nirmatrelvir (two 150... [ Capt Ar (), [facility] Tailor Helper, PGY-2 [employer], [facility] [employer] Addendum by IMER WILBURN MD on March 19, 2024 07:44:42 CDT On the day of encounter, I was available for discussion with the resident physician. Case was discussed with me in the Teach Room. I agree with the assessment and plan of care as documented above with any exceptions/additions noted below if necessary. All labs/rads/consults to be followed by the ordering provider. DO Chaparro Wood, [facility], Family Medicine Physician Extracted from:Title: Weight Loss Counseling Author: SHIRLEY ANGELES DO Date: 03/20/23 1. O besity Chronic, Treated History of BMI > 30, current BMI 29.83, has lost 20lbs in the past few months. Takes Semaglutide (5ml) 1/1 mg/ml), now taking 1ml injections a week and paying out of pocket. Has not tried any other weight loss medications in the past. Plan: Prior Authorization submitted online Patient will call if she wants to start Phentermine Ordered: Basic Metabolic Panel Hemoglobin A1c Lipid Panel Microalbumin Level, Urine 2. D yslipidemia Chronic, Controlled with Diet Last Cholesterol level taken in 2020 with elevated LDL of 178 and Total Cholesterol 254 Plan: Repeat Lipid Panel Continue Diet and Exercise Ordered: Basic Metabolic Panel Hemoglobin A1c Lipid Panel Microalbumin Level, Urine Shirley Angeles DO, , [facility] Resident Provider Addendum by BOB ARRIOLA MD on March 21, 2023 11:53:41 CDT I certify that I was present for case discussion in the Family Medicine preceptor room at the time of this encounter. I have reviewed the note and agree with the findings, assessment, and plan except as I have documented below. Follow up as listed. All labs/imaging/consults to be followed by the ordering provider. Capt Curt () Family Medicine Physician [facility] [place], [place] 01/17/2025 [id number] [facility] Assessment and Plan Extracted from:Title : Annual Well Female Author: HSIRLEY ANGELES DO Date: 04/22/24 1. W ell adult General Prevention: Colon Cancer Screening: D ue _ D esires Cologuard (Low risk currently) No fhx of colon cancer. Substance use: Denies Skin cancer: Recommended limiting UV exposure and use of sunblock; _ Weight: b riefly reviewed recommendations for active lifestyle and healthy diet Hep C Screen: _ HIV Screen: (15-65) HgbA1C: ( 40-70 y/o and BMI >30) 4 .5% PHQ-2 as above Mammo (50-74 Q2 years): G ets done at [facility], see below - - BRCA: No known personal or FHx of breast/ovarian/tubal/peritoneal cancer or known familial gene mutations Pap: ( 21-29 Q3 years cyto only or Q5 cyto+HPV, 30-65 Q5 years) D [facility] at [facility]. STI: ( women 24 and younger) Immunizations: Flu Immunization: Due Fall 2023 COVID-19: Booster D ue 2. H yperlipidemia New to Patient, Untreated Chol 212, HDL 72, LDL 125 Lost 35 lbs. [place] [employer] [place] weight [place]. Plan: Discussed Nutrition Referral vs Low Cholesterol Diet Joint Decision Making for Low Cholesterol Diet Repeat lab in 3-6 months F/U in 6 months 3. A nxiety Chronic, Controlled Plan: Lorazepam 0.5mg PO PRN for anxiety 10 pills for the year 4. P ostural orthostatic tachycardia syndrome Chronic, Controlled\ Plan: Continue to follow with cardiology 5. S creening for malignant neoplasm of colon done Desires Cologuard Plan: Cologuard order form filled out and p laced in fax-out folder in teach room 6. S creening for cancer done Mammograms done at [facility] for last 5 years all low risk. Wants to continue to get them there. Plan: Referral sent for outside Radiology/mammogram Ordered: Referral Request 2.0 - DoD Orders: LORazepam(LORazepam 0.5 mg oral tablet), 1 tab(s), Oral, As Directed, PRN anxiety, # 10 tab(s), 0 total refill(s), Maintenance, 1 tab(s) Oral As Directed,PRN:as needed for anxiety, Pharmacy: [facility] [Last filled 04/22/24] Shirley Angeles DO, CAPT, [employer] Resident Provider Addendum by KITA CRUZ MD on May 03, 2024 14:06:04 CDT I was present and available in the family medicine clinic during the patient's appointment.? The case was discussed with me and I agree with the assessment and plan as documented. ? HLF Extracted from:Title: Arturo Mail Clerks Supervisor Office Clinic Note Author: ANURADHA AMIN, REGIONAL RETAIL SALES MANAGER Date: 04/19/24 1. E ncounter for gynecological examination (general) (routine) with abnormal findings Cervical Cancer Screening: Pap Smear and HPV testing c ollected today. If negative, pt may repeat in 5 years Breast Cancer Screening: CBE d eclined.. Discussed breast self-awareness. Mammogram r ecommended. Pt will self-schedule. Colon Cancer Screening: Initiate at age 45 for average risk patients. P t prefers an alternative to colonoscopy. She p lans to o rder Cologuard. Immunizations: s tatus reviewed. Reproductive Life Planning: _spouse w/vas Mental Health: Patient declined any MH needs today Age-appropriate Prevention Education: Maria Fernanda enciso.tobacco and alcohol use; healthy eating and exercise; preventive screening for chronic diseases. 2. E ncounter for screening for malignant neoplasm of cervix Ordered: AP Cytology SUPERVISOR STONE HPV High Risk (16/18/Other) 3. C andidiasis of vulva and vagina BD affirm collected. Clinical findings suggestive of Yeast infection. Pt prefers oral tx. Hygiene measures discussed. Will contact pt if any other infections present on test. F/u if symptoms persist. Ordered: fluconazole(Diflucan 150 mg oral tablet), See Instructions, Take 1 tablet by mouth now and repeat in 3 days for yeast infection, # 2 tab(s), 1 total refill(s), Acute, 04/19/2025, Take 1 tablet by mouth now and repeat in 3 days for yeast infection, Pharmacy: [facility] #[id number], Fungal... Vaginitis/Vaginosis Panel Reviewed with patient discharge instructions. Written discharge instructions were provided to the patient. Reviewed with patient medication risks, benefits, side effects and instructions for use, if prescribed. Recommended patient to follow up regularly for elise Hurt as discussed above, or as needed for WH concerns, symptoms, or questions. Anuradha Amin, [facility], [facility] Women s Health Nurse Practitioner, Board Certified [address] [place] [address] [facility] [address] [place] [address] comm: Extracted from:Title: FM - Covid-19 Author: TAMRA MCGILL DO Date: 03/19/24 1. C OVID-19 Acute, diagnosed 4 days ago, requesting paxlovid Per lexicom there is no drug interaction with her Ativan or Wegovy - will provide paxlovid BID x5 days. - Provided ER precautions 2. A nxiety Pt with situational anxiety with travel and procedures. Gets 10 Ativan tabs that last 1 year - Last prescription was 10/2022. - Pt requesting 2 tabs prior to next visit with Dr. Angeles in April. - Bridge provided Orders: LORazepam(LORazepam 0.5 mg oral tablet), 1 tab(s), Oral, As Directed, # 2 tab(s), 0 total refill(s), Maintenance, 1 tab(s) Oral As Directed, Pharmacy: [facility] [Not filled] nirmatrelvir-ritonavir(Paxlovid 300 mg-100 mg Dose Pack), See instructions, Take 300 mg nirmatrelvir (two 150 mg tablets) and 100 mg ritonavir (one 100 mg tablet), taking all three tablets together, orally twice daily for 5 days, # 30 tab(s), 0 total refill(s), Maintenance, Take 300 mg nirmatrelvir (two 150... [ Capt Ada Joyner), [facility] Tailor Helper, PGY-2 [facility], [facility] [place] Addendum by IMER WILBURN MD on March 19, 2024 07:44:42 CDT On the day of encounter, I was available for discussion with the resident physician. Case was discussed with me in the Teach Room. I agree with the assessment and plan of care as documented above with any exceptions/additions noted below if necessary. All labs/rads/consults to be followed by the ordering provider. DO Chaparro Wood [facility] [place] Family Medicine Physician Extracted from:Title: Weight Loss Counseling Author: SHIRLEY ANGELES DO Date: 03/20/23 1. O besity Chronic, Treated History of BMI > 30, current BMI 29.83, has lost 20lbs in the past few months. Takes Semaglutide (5ml) 1/1 mg/ml), now taking 1ml injections a week and paying out of pocket. Has not tried any other weight loss medications in the past. Plan: Prior Authorization submitted online Patient will call if she wants to start Phentermine Ordered: Basic Metabolic Panel Hemoglobin A1c Lipid Panel Microalbumin Level, Urine 2. D yslipidemia Chronic, Controlled with Diet Last Cholesterol level taken in 2020 with elevated LDL of 178 and Total Cholesterol 254 Plan: Repeat Lipid Panel Continue Diet and Exercise Ordered: Basic Metabolic Panel Hemoglobin A1c Lipid Panel Microalbumin Level, Urine Shirley Angeles DO, CAPT, [facility] Resident Provider Addendum by BOB ARRIOLA MD on March 21, 2023 11:53:41 CDT I certify that I was present for case discussion in the Family Medicine preceptor room at the time of this encounter. I have reviewed the note and agree with the findings, assessment, and plan except as I have documented below. Follow up as listed. All labs/imaging/consults to be followed by the ordering provider. Capt Ada Elias) Family Medicine Physician [facility] [place], [place] 01/17/2025 [id number] Functional Status Combined list of recent functional and cognitive assessments recorded at [employer] and [employer] (VA).VA Functional Dimmit Measurement (FIM) Scale: 1 = Total Assistance (Subject = 0% +), 2 = Maximal Assistance (Subject = 25% +), 3 = Moderate Assistance (Subject = 50% +), 4 = Minimal Assistance (Subject = 75% +), 5 = Supervision, 6 = Modified Dimmit (Device), 7 = Complete Dimmit (Timely, Safely). Assessment Date/Time Source Assessment Type Assessment Skill Assessment Score Assessment Details No data available for this section
--- OUTSIDE RECORDS SUMMARY | 2025-01-17 16:23 | XMS_ITS | Clinical Summary ---
Author Organization [facility] [address] [place] [address] Care Team Providers Care Medical Coding Technician Name Role Phone No, Physician Primary Care Provider [phone] Allergies No known active allergies Medications multivitamin tablet tablet take 1 tablet by oral route every day with food 0 0 12/21/2015 Active loratadine (CLARITIN) 10 mg tablet Take 10 mg by mouth daily Active LORazepam (ATIVAN) 0.5 mg tablet Take 0.5 mg by mouth every 6 (six) hours as needed for anxiety Active Active Problems Problem Noted Date Diagnosed Date H/O syncope 10/12/2021 Mixed hyperlipidemia 05/08/2020 Dyslipidemia 02/19/2019 Postural orthostatic tachycardia syndrome 2015 Overview (11/18/2016): POTS (postural orthostatic tachycardia syndrome) Palpitations 07/08/2015 Overview (11/18/2016): Palpitations Orthostatic hypotension 07/08/2015 Overview (11/18/2016): Orthostatic hypotension Vasovagal syncope 04/16/2014 Overview (11/18/2016): Vasovagal syncope Medical History Medical History Date Comments Vasovagal syncope Family History Medical History Relation Name Comments Diabetes type II Mother Diabetes me llitus type 2; Relation Name Status Comments Mother Social History Tobacco Use Types Packs/Day Years Used Date Smoking Tobacco: Former Smokeless Tobacco: Never Alcohol Use Standard Drinks/Week Comments Yes 0 (1 standard drink = 0.6 oz pur e alcohol) Personal Safety Answer Date Recorded Getting School Help Needed Not on file 10/27 Comments Unknown Sex and Gender Information Value Date Recorded Sex Assigned at Not on file Legal Sex Female 3:21 AM CREW BOSS Gender Identity Not on file Sexual Orientation Not on file Obstetrics History Last Filed Vital Signs Vital Sign Reading Time Taken Comments Blood Pressure 104/70 10/12/2021 12:15 PM CREW BOSS Pulse 80 10/12/2021 12:15 PM CREW BOSS Temperature - - Respiratory Rate 16 12/07/2017 9:51 AM CDT Oxygen Saturation 98% 10/12/2021 12:15 PM CREW BOSS Inhaled Oxygen Concentration - - Weight 85.5 kg (188 lb 9.6 oz) 10/12/2021 12:15 PM CREW BOSS Height 162.6 cm (5' 4) 10/12/2021 12:15 PM CREW BOSS Body Mass Index 32.37 10/12/2021 12:15 PM CREW BOSS Plan of Treatment Not on file Insurance [facility] CLAIMS Care Teams Medical Coding Technician Relationship Specialty Start Date End Date No, Physician PCP - General 10/03/17
--- OUTSIDE RECORDS SUMMARY | 2025-01-17 16:23 | XMS_ITS | Referral Summary ---
Author Organization [facility] [address] Address [address] [place] [address] Care Team Providers Care Ceramics Machine Operator Name Role Phone No, Physician Primary Care Provider [phone] Allergies No known active allergies Medications multivitamin [...] Vasovagal syncope 04/16/2014 Overview (11/18/2016): Vasovagal syncope Social History Tobacco Use Types Packs/Day Years Used Date Smoking Tobacco: Former Smokeless Tobacco: Never Alcohol Use Standard Drinks/Week Comments Yes 0 (1 standard drink = 0.6 oz pur e alcohol) Personal Safety Answer Date Recorded Getting School Help Needed Not on file 03/16 /2024 Comments Unknown Sex and Gender Information Value Date Recorded Sex Assigned at Not on file Legal Sex Female 3:21 AM ANILINE PRESS WORKER Gender Identity Not on file Sexual Orientation Not on file Last Filed Vital Signs Vital Sign Reading Time Taken Comments Blood Pressure 104/70 10/12/2021 12:15 PM ANILINE PRESS WORKER Pulse 80 10/12/2021 12:15 PM ANILINE PRESS WORKER Temperature - - Respiratory Rate 16 12/07/2017 9:51 AM CDT Oxygen Saturation 98% 10/12/2021 12:15 PM ANILINE PRESS WORKER Inhaled Oxygen Concentration - - Weight 85.5 kg (188 lb 9.6 oz) 10/12/2021 12:15 PM ANILINE PRESS WORKER Height 162.6 cm (5' 4) 10/12/2021 12:15 PM ANILINE PRESS WORKER Body Mass Index 32.37 10/12/2021 12:15 PM ANILINE PRESS WORKER Plan of Treatment Not on file Insurance [facility] CLAIMS Care Teams Ceramics Machine Operator Relationship Specialty Start Date End Date No, Physician PCP - General 10/03/17
[2025-01-17 16:30] VITALS: BP 134/87; PULSE 73; RESP 16; TEMP 36.3; O2SAT 100
[2025-01-17 16:38] LABS: EDUAAPPEAR Clear; EDUABILI Negative (Negative); EDUABLOOD Negative (Negative); EDUACOLOR1 Light/Pale; EDUAGLUCOSE Negative (Negative); EDUAKETONE Negative (Negative); EDUALEUKO Trace (Negative); EDUANITRATE Negative (Negative); EDUAPROTEIN Negative (Negative); EDUAUROBILI 0.2
--- NOTE | 2025-01-17 16:55 | ED.FEMALEGU ---
HPI - Female Genitourinary General Chief complaint: Urogenital-Female Stated complaint: urinary irritation Time Seen by Provider: 01/17/25 16:45 Source: patient and RN notes reviewed Mode of arrival: ambulatory Limitations: no limitations History of Present Illness HPI Narrative: 44-year-old female presents Express Care complaining of urinary symptoms for 3 days. Patient said she woke up with symptoms. Patient denies any dysuria. Patient reports having lower abdominal pain that is worse with urinating that is worse on the left. Patient states the pain is nonradiating and comes and goes. Patient also reports having increased frequency and hesitancy. Patient denies any vaginal bleeding, vaginal discharge, nausea, vomiting, diarrhea, fevers, body aches, chills. Patient took a home urinary tract infection test that showed that it was positive. Patient reports the pain as a 1 on a 10 at rest and a 3/10 when urinating. Patient denies any chance of . Patient is not taking anything [id number] for symptoms. Patient denies any recent vigorous activities. Related Data Home Medications ?Medication ?Instructions ?Recorded ?Confirmed ?Last Taken ?Type semaglutide 1 mg/dose (2 mg/1.5 1 mg subcut WEEKLY 02/10/23 02/10/23 Unknown History mL) subcutaneous pen injector (Ozempic) buspirone 10 mg tablet mg 01/17/25 Unknown History Allergies Allergy/AdvReac Type Severity Reaction Status Date / Time No Known Allergies Allergy Verified 01/17/25 16:29 Review of Systems Review of Systems: CONSTITUTIONAL: Denies fever, chills, body aches, or sweats. EYES: Denies visual changes, redness, or discharge. ENT: Denies rhinorrhea, congestion, sore throat, or otalgia. CARDIOVASCULAR: Denies chest pain, palpitations, or edema. RESPIRATORY: Denies cough or dyspnea. GASTROINTESTINAL: Positive for left lower abdominal pain,. Negative for bloody stools, hematochezia, nausea, vomiting, or diarrhea. GENITOURINARY: Denies dysuria or hematuria. Positive increased frequency and hesitancy. SKIN: Denies rash or itching. MUSCULOSKELETAL: Denies back pain, joint pain, or myalgia. NEUROLOGIC: Denies headache, numbness, or weakness. PSYCHIATRIC: Denies anxiety or depression. All other systems reviewed are negative, except as documented in HPI. [facility] Past Medical History Medical History Obesity (BMI 30-39.9) on Ozempic for weight loss Surgical History Surgical History Previous section Social History Social History Smoking status: Never smoker Alcohol intake: current Alcohol use details: rare social Substance use type: does not use Living arrangements: with family Gender identity (if verbalized by the patient): Female Comments At the time of my signature, I reviewed and agree with the nursing past medical, surgical, social, and family history. There is no relevant family history pertinent to the patient complaint. Exam Narrative: GENERAL: This is a well-nourished, well-developed adult, in no apparent distress. They are non ill-appearing, nontoxic appearing. HEAD: normocephalic, atraumatic. EYES: Sclera clear/white. Vision is grossly intact. Conjunctiva normal bilaterally. Extraocular movements intact. EARS: External ears normal, Hearing grossly intact. NOSE: External nose normal THROAT: Mucous membranes moist NECK: Normal range of motion CARDIOVASCULAR: Regular rate and rhythm. Normal S1-S2. No clicks, gallops, rubs, or murmurs. RESPIRATORY: Respiratory rate normal, respiratory effort nonlabored, no respiratory distress. Lung sounds clear to auscultation throughout. No adventitious lung sounds. Lung sounds equal bilaterally. GASTROINTESTINAL: Abdomen soft, flat, mild suprapubic tenderness, no tender left lower quadrant, nondistended. Bowel sounds are active. No hepato-splenomegaly, or palpable masses. No guarding or rigidity. No rebound tenderness. SKIN: warm, Dry, intact with no suspicious lesions or rash, good texture and turgor. NEURO: awake, alert, and oriented to person, place and time. There were no obvious focal neurologic abnormalities. EXTREMITIES: No joint tenderness, effusion, or edema noted. BACK: Nontender without deformity. No CVA tenderness. Course Course Emergency Course: Portions of this record may have been created with voice recognition software Level of Care: Express Care Visit Vital Signs Vital signs: Vital Signs Temperature 97.4 F L 01/17/25 16:30 Pulse Rate 73 01/17/25 16:30 Respiratory Rate 16 01/17/25 16:30 Blood Pressure 134/87 01/17/25 16:30 Pulse Oximetry 100 01/17/25 16:30 Oxygen Delivery Room Air 01/17/25 16:30 Temperature 97.4 F L 01/17/25 16:30 Pulse Rate 73 01/17/25 16:30 Respiratory Rate 16 01/17/25 16:30 Blood Pressure 134/87 01/17/25 16:30 Pulse Oximetry 100 01/17/25 16:30 Oxygen Delivery Room Air 01/17/25 16:30 MDM - Female Genitourinary MDM Narrative Medical decision making narrative: Urine dipstick with positive leukocytes. Urine culture pending. Patient's symptoms consistent with urinary tract infection. Will treat with cephalexin. Patient urine is negative for . No peritoneal findings or palpable masses on abdominal exam. Physical exam is reassuring. Offered patient ER transfer due to her abdominal pain patient declined and would like try antibiotics. Discussed physical exam findings. Advised supportive measures and signs/symptoms to go to the ER. Pt is appropriate for outpt treatment and f/u. Differential Diagnosis Differential diagnosis: Likely urinary tract infection, ovarian cyst, cystitis and other (Pyelonephritis, ectopic ) Lab Data Attestation: I reviewed the patient's lab results. Labs: Lab Results 01/17/25 01/17/25 Range/Units 16:35 16:57 POC Urine Color Light/pale POC Urine Clarity Clear POC Urine pH 6.0 POC Ur Specif [place] 1.010 POC Urine Protein Negative (Negative) POC Ur Glucose (UA) Negative (Negative) POC Urine Ketones Negative (Negative) POC Urine Blood Negative (Negative) POC Urine Nitrite Negative (Negative) POC Urine Bilirubin Negative (Negative) POC Urine Urobilinogen 0.2 POC U Leukocyte Esteras Trace (Negative) POC Urine HCG, Qual Negative (Negative) Discharge Plan Discharge Clinical Impression: Urinary tract infection Qualifiers: Urinary tract infection type: site unspecified Hematuria presence: without hematuria Qualified Code(s): N39.0 - Urinary tract infection, site not specified Patient Disposition: Home Condition: Stable Instructions: Antibiotic Form, Urinary Tract Infection in Women (ED) Additional Instructions: Take the antibiotic as prescribed The urine will be sent of for a culture to identify what type of bacteria is causing your infection. If the culture shows that the antibiotic will not get rid of your infection, you will be notified and a new antibiotic will be called in for you. Increase water intake you will need to follow up with your PCP 3-5 days. Go to the ER for any worsening symptoms, abdominal pain, fevers, nausea, vomiting, or any other concerns Patient Language: Croatian Prescriptions: New cephalexin 500 mg capsule 500 mg PO BID 7 Days Qty: 14 0RF No Action Ozempic 1 mg/dose (2 mg/1.5 mL) Pen Injector 1 mg SUBCUT WEEKLY buspirone 10 mg tablet Follow-up/Referrals: GOLDEN MEADOW, [Primary Care Provider] - Time of Disposition: 17:02
[2025-01-17 16:59] LABS: BEDSIDEPREGUCG Negative (Negative)
== END 2025-01-17 17:04 | disposition home or self-care (01) ==
DX: N39.0 Urinary tract infection, site not specified (principal); E66.9 Obesity, unspecified; Z68.28 Body mass index [BMI] 28.0-28.9, adult
CPT/HCPCS: 81003; 81025; 87086; 99213; G0463